=== PATIENT | female | born 1960 | race Caucasian/White ===

== ENCOUNTER → 2017-01-16 | Outpatient (CLI) | payer OTHER ==
[~2017-01-16] MED LIST: AMOXICILLIN500 M2 PO; AMOXICILLIN500 MG PO; ANUSOL-HC25 MG RC; ATIVAN1 MG PO; BACTRIM DS 8001 TA1 PO; BACTROBAN CREAM15 GM T; BENADRYL50 MG PO; BRIN10TA PO; BRIN20TA PO; CIPRO500 MG PO; CIPRODEX 0.3%-7.5 M1; CIPROFLOXACIN1 EACH OT; CIPROFLOXACIN500 MG PO; CLARITIN10 M1 PO; CLARITIN10 MG PO; DAYPRO600 M1 PO; DULERA100 PO; EFFEXOR XR75 M1 PO; EFFEXOR-XR150 MG PO; ELIMITE5% TP; EVISTA60 MG PO; FENOFIBRATE134 MG PO; FENOFIBRATE160 MG PO; FIORICET 325 MG1 TAB PO; FLEXERIL10 MG PO; KEFLEX500 MG PO; KENALOG0.1% TP; LATU40TA PO; LEVAQUIN500 M1 PO; LISINOPRIL10 MG PO; LOFIBRA160 MG PO; LOTRISONE 0.05%1 CRE TP; MEDROL DOSEPAK4 MG PO; MELATONIN1 M1 PO; MELLARIL10 MG PO; MELLARIL100 MG PO; MIDODRINE HCL5 M1 PO; MOTRIN600 MG PO; MOTRIN800 MG PO; NO MED LIST; OMEPRAZOLE DR20 MG PO; OMEPRAZOLE20 M1 PO; OMEPRAZOLE20 M2 PO; OMNICEF300 MG PO; OYSTER CALCIUM/1 TA1 PO; OYSTER SHELL CA1 TA5 PO; Oscal,Oyster S500 MG PO; PREDNISONE10 MG PO; PREDNISONE20 M1 PO; PRILOSEC20 M1 PO; PRILOSEC20 MG PO; PROAIR HFA0.09 MG/AC INH; PROAIR HFA8.5 GM INH; PROLIXIN2.5 MG PO; PROZAC10 MG PO; PROZAC20 MG PO; PT UNSURE OF MEDS; RALOXIFENE HYDR60 MG PO; REGLAN10 MG PO; SIMVASTATIN20 MG PO; TESSALON PERLE100 M1 PO; THIORIDAZINE H100 MG; TRIAMCINOLONE AC0.1% T; TRICOR134 MG; TRICOR134 MG PO; TRICOR145 MG PO; TYLENOL W/CODEI1 TA2 PO; VENTOLIN H0.09 MG/AC INH; VIBRAMYCIN100 MG PO; VICO75300 PO; VICODIN ES 7501 TA1 PO; VISTARIL50 MG PO; VITAMIN D2400 UNIT PO; ZANAFLEX4 MG PO; ZITHROMAX250 MG PO; ZOCOR20 MG PO
[2017-01-16 08:42] LABS: EOS % 0.2 % (1.0-4.0); HEMATOCRIT 38.8 % (37.0-47.0); HEMOGLOBIN 12.5 g/dl (12.0-16.0); LYMPH # 1.7 10*3/uL (1.3-4.4); LYMPH % 37.5 % (27.0-41.0); MEAN CELL VOLUME 93.7 fl (81.0-99.0); MEAN CORPUSCULAR HGB 30.2 pg (27.0-31.0); MEAN CORPUSCULAR HGB CONC 32.2 g/dl (33.0-37.0); MEAN PLATELET VOLUME 9.5 fl (9.6-12.3); MONO # 0.4 10*3/uL (0.1-1.0); NEUT # 2.4 10*3/uL (2.3-7.9); NEUT % 53.1 % (47.0-73.0); PLATELET COUNT AUTOMATED 320 10*3/uL (130-400); RED BLOOD COUNT 4.14 10*6/uL (4.10-5.10); RED CELL DISTRI WIDTH 12.6 % (0-14.5); WHITE BLOOD COUNT 4.4 10*3/uL (4.8-10.8)
[2017-01-16 08:54] LABS: HEMOGLOBIN A1c 5.4 % (4.8-5.6)
[2017-01-16 09:16] LABS: ALBUMIN 3.8 gm/dl (3.1-4.5); ALKALINE PHOSPHATASE 38 U/L (45-117); BILIRUBIN, DIRECT < 0.1 mg/dL (0.0-0.2); BILIRUBIN, TOTAL 0.3 mg/dl (0.2-1.0); BUN 13 mg/dl (7-24); CARBON DIOXIDE 24 mmol/L (21-32); CHLORIDE 109 mmol/L (98-107); CHOLESTEROL 233 mg/dL (<200); EST GLOM FILT AFRICAN AMERICAN > 60 ml/min; GLUCOSE 98 mg/dL (65-99); POTASSIUM 3.7 mmol/L (3.5-5.1); SGOT/AST 22 IU/L (3-35); SGPT/ALT 18 U/L (12-78); SODIUM 142 mmol/L (136-145); T3 UPTAKE 29 % (31-39); TOTAL PROTEIN 7.3 gm/dL (6.4-8.2); TRIGLYCERIDES 181 mg/dl (<150); VLDL CHOLESTEROL 36 mg/dL (6-40)
[2017-01-16 09:21] LABS: HDL CHOLESTEROL 44 mg/dl (40-60); LDL CHOLESTEROL 153 mg/dL (9-159)
== END | disposition home or self-care (01) ==
LOC: LAB 08:16
PROVIDERS: Nurse Practitioner Family
DX: Z79.899 Other long term (current) drug therapy (principal)

== ENCOUNTER → 2017-05-28 | Outpatient (CLI) | payer OTHER | END | disposition home or self-care (01) | LOC: RAD 13:15 | DX: M47.817 Spondylosis without myelopathy or radiculopathy, lumbosacral region (principal) ==

== ENCOUNTER 2017-06-29 02:39 | Inpatient (IN) | payer OTHER ==
[~2017-06-29] VITALS: Ht 153.7 cm; Wt 97.1 kg
[2017-06-29] VITALS (8 sets, daily range): BP systolic 100–131; BP diastolic 56–69
--- NOTE | ~2017-06-29 | CON ---
[place], [place] REPORT OF CONSULTATION NAME: AUBREY HUDSON UNIT #: [id number] ROOM: 526 DOCTOR: LESVIA HURTADO MD BIRTHDATE: [birth year] DOS: 06/30/2017 CHIEF COMPLAINT: "I am feeling better, thank you." HISTORY OF PRESENT ILLNESS: This is a 56-year-old white female who apparently has a lengthy history of schizoaffective disorder and sees Rhonda Douglas, a nurse practitioner, at the [facility]. The patient is admitted now for shortness of breath as well as substernal chest pain. The patient is being worked up for organic issues. From a medical standpoint, she says she is feeling better and the chest pain has subsided. Psychiatrically, she is content being on her Prolixin and her Prozac, stating that both are effective at combating depression and any voices that she has, she has not experienced either symptom for some time. She routinely follows up with Rhonda Douglas. She convincingly denies medication side effects and requests that her medicines remain unchanged at this point in time. MENTAL STATUS: She is alert and oriented to person, place and time. Mood does seem to be euthymic. Affect is appropriate. There are no symptoms of hypomania or anyi. There are no acute auditory or visual hallucinations. No delusions, no paranoia. Short, intermediate, and long-term memory are intact. DIAGNOSIS: Schizoaffective disorder. PLAN: She is well controlled with these meds. I have noticed that you have reordered the Prozac. It seems that Prolixin may not be on our formulary as long as she does not stay here much longer she can go a few days without it. Should she require a lengthy stay in the hospital, which seems doubtful, I would see if we can obtain the Prolixin for her, so she does not go medication free, make certain she has a followup appointment with Rhonda Douglas at the [facility] health post-discharge. LESVIA HURTADO MD CM:CONSTR:REPORT OF CONSULTATION 1212 07/01/17 0549 interface
[2017-06-29 03:17] LABS: EOS % 0.2 % (1.0-4.0); HEMATOCRIT 31.7 % (37.0-47.0); HEMOGLOBIN 10.2 g/dl (12.0-16.0); LYMPH # 1.9 10*3/uL (1.3-4.4); LYMPH % 35.3 % (27.0-41.0); MEAN CELL VOLUME 93.2 fl (81.0-99.0); MEAN CORPUSCULAR HGB CONC 32.2 g/dl (33.0-37.0); MEAN PLATELET VOLUME 9.7 fl (9.6-12.3); MONO # 0.5 10*3/uL (0.1-1.0); MONO % 9.3 % (3.0-9.0); PLATELET COUNT AUTOMATED 223 10*3/uL (130-400); RED CELL DISTRI WIDTH 12.7 % (0-14.5); WHITE BLOOD COUNT 5.4 10*3/uL (4.8-10.8)
[2017-06-29 03:27] LABS: ACT PARTIAL THROMBO TIME 22.3 SECONDS (20.8-31.5)
[2017-06-29 03:35] LABS: ALBUMIN 3.2 gm/dl (3.1-4.5); ALKALINE PHOSPHATASE 36 U/L (45-117); BUN 11 mg/dl (7-24); CHLORIDE 106 mmol/L (98-107); CREATININE 1.15 mg/dL (0.55-1.02); MAGNESIUM 1.8 mg/dL (1.5-2.1); POTASSIUM 3.4 mmol/L (3.5-5.1); SGOT/AST 16 IU/L (3-35); SGPT/ALT 16 U/L (12-78); SODIUM 140 mmol/L (136-145); TOTAL PROTEIN 6.7 gm/dL (6.4-8.2); TROPONIN I < 0.015 ng/ml (<0.045)
--- NOTE | 2017-06-29 04:18 | NUR ---
A 56, admitted to , under the services of BRYANNA Michelle DO with a diagnosis of chest pain. Chief complaint is bilat knee pain had fallen last week climbing stairs. c/o sob lives with heavy smoker. knee pain 07/21.. Patient arrived via stretcher from ER. Monitor applied. Initial assessment completed. Vital signs taken and recorded. BRYANNA MICHELLE DO notified of admission to the unit. Orders received. See assessment for past medical history, medications and allergies. Patient and/or family oriented to unit. [facility]. visitation policy reviewed. Clothing/patient valuable form completed. LAVERNE GURROLA
[2017-06-29] MEDS ORDERED: OYSTER SHELL C1 EAC2 PO (04:47)
--- NOTE | 2017-06-29 05:33 | NUR ---
PT. BROUGHT ALL HOME MEDICATIONS IN WITH HER MED REC REVIEWED AND ALL MEDICATIONS SENT TO PHARMACY.
--- NOTE | 2017-06-29 05:38 | NUR ---
CALLED DR. QUEEN NOTIFIED OF PT. CONDITION AND HOME MEDICATIONS RECONCILLED AND PT. WANT CODE STATUS TO BE FULL WITH NO INTUBATION/VENT.
--- NOTE | 2017-06-29 07:30 | NUR ---
PATIENTS HOME MEDICATIONS COUNTED AND TAKEN TO PHARMACY. PT. TO HAVE MEDICATIONS BACK ON DISCHARGE.
--- NOTE | 2017-06-29 08:01 | NUR ---
SPOKE WITH SHAWN IN [facility] AND SHE SAID SHE WILL MAKE SURE DR. HURTADO SEES HIS CONSULTS TODAY.
--- NOTE | 2017-06-29 09:00 | NUR ---
Extrusion Press Operator in to talk to patient. Patient states lives at home with mom and uncle. There are few steps in the home. Physician: kayla marcelino [facility]acy: [facility] Home health services: none Patient's level of ADLs: INDEPENDENT Patient has working utilities: all working DME: cane Follow-up physician's appointment after d/c: will be made by hospitalist nurse director upon discharge Does patient want to access PORTAL?: no Discharge plan discussed with patient, patient lives at home with her mom and uncle, she states she gets around with a cane, patient stated she would be going back home when able and denies any home needs. KIARA DIAZ
--- NOTE | 2017-06-29 10:40 | NUR ---
DR HURTADO NOTIFIED OF CONSULT
--- NOTE | 2017-06-29 11:40 | NUR ---
CONSULT INFO GIVEN TO JEET AT [facility]
--- NOTE | 2017-06-29 21:10 | NUR ---
PATIENT LYING IN BED. NO VOICED COMPLAINTS AT THIS TIME. PATIENT IS A&OX3, FLAT AFFECT. AMBULATORY. RESPIRATIONS EASY/REGULAR. CALL LIGHT IS IN REACH.
[2017-06-30] VITALS: BP 106/53
--- NOTE | 2017-06-30 00:42 | NUR ---
PATIENT SLEEPING. CALL LIGHT IN REACH.
[2017-06-30 07:08] LABS: HEMOGLOBIN 11.3 g/dl (12.0-16.0); LYMPH # 1.2 10*3/uL (1.3-4.4); LYMPH % 37.3 % (27.0-41.0); MEAN CELL VOLUME 95.1 fl (81.0-99.0); MEAN CORPUSCULAR HGB 30.7 pg (27.0-31.0); MEAN CORPUSCULAR HGB CONC 32.3 g/dl (33.0-37.0); MEAN PLATELET VOLUME 9.6 fl (9.6-12.3); MONO # 0.3 10*3/uL (0.1-1.0); MONO % 7.7 % (3.0-9.0); NEUT # 1.8 10*3/uL (2.3-7.9); NEUT % 54.7 % (47.0-73.0); PLATELET COUNT AUTOMATED 241 10*3/uL (130-400); RED BLOOD COUNT 3.68 10*6/uL (4.10-5.10); RED CELL DISTRI WIDTH 12.6 % (0-14.5); WHITE BLOOD COUNT 3.2 10*3/uL (4.8-10.8)
[2017-06-30 07:41] LABS: ALBUMIN 3.3 gm/dl (3.1-4.5); ALKALINE PHOSPHATASE 38 U/L (45-117); BUN 14 mg/dl (7-24); CHLORIDE 109 mmol/L (98-107); CHOLESTEROL 205 mg/dL (<200); CREATININE 1.06 mg/dL (0.55-1.02); FREE T4 0.97 ng/dl (0.76-1.46); HDL CHOLESTEROL 41 mg/dl (40-60); LDL CHOLESTEROL 139 mg/dL (9-159); MAGNESIUM 2.2 mg/dL (1.5-2.1); PHOSPHOROUS 3.4 mg/dL (2.5-4.9); POTASSIUM 3.9 mmol/L (3.5-5.1); SGOT/AST 16 IU/L (3-35); SGPT/ALT 15 U/L (12-78); SODIUM 141 mmol/L (136-145); TRIGLYCERIDES 125 mg/dl (<150); VLDL CHOLESTEROL 25 mg/dL (6-40)
[2017-06-30 08:00] VITALS: BP 100/58
[2017-06-30 08:14] LABS: VITAMIN D, 25-HYDROXY 31.6 ng/mL (30-100)
[2017-06-30] MEDS ORDERED: ASPIRIN ADULT L81 M1 PO (11:56)
[2017-06-30 12:00] VITALS: BP 111/44
[2017-06-30] MEDS ORDERED: B12,B-12,B 12500 MC1 PO (13:53)
--- NOTE | 2017-06-30 14:57 | NUR ---
DISCHARGED HOME AFTER INSTRUCTIONS GIVEN TO PATIENT.
== END 2017-06-30 14:57 | disposition home or self-care (01) | DRG 280 ==
LOC: ED 02:39 → 5E 03:45 → EDHOLD 03:45 → 5E 03:54
PROVIDERS: Hospitalist; Student in an Organized Health Care Education/Training Program; ADMIT Internal Medicine
DX: I21.3 ST elevation (STEMI) myocardial infarction of unspecified site (principal); E43 Unspecified severe protein-calorie malnutrition; N18.3 Chronic kidney disease, stage 3 (moderate); Z68.41 Body mass index [BMI] 40.0-44.9, adult; F25.9 Schizoaffective disorder, unspecified; E87.6 Hypokalemia; M25.561 Pain in right knee; M54.42 Lumbago with sciatica, left side; F32.9 Major depressive disorder, single episode, unspecified; E66.01 Morbid (severe) obesity due to excess calories; K21.9 Gastro-esophageal reflux disease without esophagitis; J44.9 Chronic obstructive pulmonary disease, unspecified; F41.9 Anxiety disorder, unspecified; E78.2 Mixed hyperlipidemia; D64.9 Anemia, unspecified; R73.9 Hyperglycemia, unspecified; M25.562 Pain in left knee; M54.41 Lumbago with sciatica, right side; G89.29 Other chronic pain; F41.1 Generalized anxiety disorder; R94.31 Abnormal electrocardiogram [ECG] [EKG]; Z82.49 Family history of ischemic heart disease and other diseases of the circulatory system; Z90.710 Acquired absence of both cervix and uterus; Z87.891 Personal history of nicotine dependence; Z83.3 Family history of diabetes mellitus; Z84.89 Family history of other specified conditions; Z88.2 Allergy status to sulfonamides; Z88.8 Allergy status to other drugs, medicaments and biological substances; Z79.899 Other long term (current) drug therapy

== ENCOUNTER → 2017-07-03 | Outpatient (CLI) | payer OTHER ==
[~2017-07-03] MED LIST changes: +ASPIRIN ADULT L81 M1 PO; +B12,B-12,B 12500 MC1 PO; +OYSTER SHELL C1 EAC2 PO
--- NOTE | ~2017-07-03 | ST ---
[place], [place] EXERCISE STRESS TEST REPORT [id number] UNIT #: [id number] ROOM: DOCTOR: NIKI BALDERRAMA MD BIRTHDATE: [birth year] DOS: 07/03/2017 INDICATION: Chest pain. PROCEDURE: The patient was brought into the stress lab. The procedure was explained with risks, benefits, and alternatives. Lexiscan was injected. The patient tolerated the procedure well. Following the injection, there was evidence of throughout the EKG without any progression in the recovery period. BLOOD PRESSURE RESPONSE: Resting blood pressure was 110/78 with ending blood pressure 102/70. SUMMARY: 1. Adequate Lexiscan stress test. 2. Negative Lexiscan stress test for stress induced myocardial ischemia. 3. No arrhythmias were noted. 4. Myoview results will be reported separately. NIKI BALDERRAMA MD CM:STRESS:EXERCISE STRESS TEST REPORT 1000 1017 NIKI BALDERRAMA MD
--- NOTE | 2017-07-03 09:52 | NUR ---
INFORMED SIGNED CONSENT OBTAINED FOR LEXISCAN STRESS TEST WITH DR BALDERRAMA. RESTING HR 82 NSR BP 110/78. PULSE OX 97% LUNGS CLEAR. PT COMPLETED ONE MINUTE OF A LEXISCAN 0.4MG IV OVER 10 SECONDS. NO ARRHTYHMIAS OR ST CHANGES NOTED. PT C/O SOB AND HEADACHE WITH INFUSION. LAST RECOVERY HR OF 102 BP 102/70. PT IN STABLE CONDITION, AWAITING NUCLEAR IMAGES.
== END | disposition home or self-care (01) ==
LOC: CARD 01:54
DX: R07.89 Other chest pain (principal)

== ENCOUNTER → 2017-09-14 | Day surgery (SDC) | payer OTHER ==
[~2017-09-14] VITALS: Ht 165.1 cm; Wt 99.8 kg
[~2017-09-14] MED LIST changes: +CONSTULOSE10 GM/151 PO
[2017-09-14 07:00] VITALS: BP 116/70
[2017-09-14 08:30] VITALS: BP 79/54
[2017-09-14 08:41] VITALS: BP 97/63
[2017-09-14 09:00] VITALS: BP 131/69
== END | disposition home or self-care (01) ==
LOC: SDC 09-11 14:45
DX: D12.3 Benign neoplasm of transverse colon (principal); K62.1 Rectal polyp; I10 Essential (primary) hypertension; F41.9 Anxiety disorder, unspecified; F32.9 Major depressive disorder, single episode, unspecified; K21.9 Gastro-esophageal reflux disease without esophagitis; E78.00 Pure hypercholesterolemia, unspecified; Z86.14 Personal history of Methicillin resistant Staphylococcus aureus infection; Z98.890 Other specified postprocedural states; Z82.49 Family history of ischemic heart disease and other diseases of the circulatory system; Z88.1 Allergy status to other antibiotic agents; Z88.8 Allergy status to other drugs, medicaments and biological substances; J44.9 Chronic obstructive pulmonary disease, unspecified; Z79.899 Other long term (current) drug therapy

== ENCOUNTER → 2017-09-22 | Outpatient (CLI) | payer OTHER | END | disposition home or self-care (01) | LOC: SDC 09-11 14:45 → MAMMO 16:17 | DX: Z12.31 Encounter for screening mammogram for malignant neoplasm of breast (principal) ==

== ENCOUNTER → 2017-12-08 | Outpatient (CLI) | payer OTHER | END | disposition home or self-care (01) | LOC: RAD 11:40 | DX: M48.56XD Collapsed vertebra, not elsewhere classified, lumbar region, subsequent encounter for fracture with routine healing (principal); M17.0 Bilateral primary osteoarthritis of knee ==

== ENCOUNTER 2018-02-03 04:55 | Emergency (ER) | payer OTHER ==
[~2018-02-03] VITALS: Ht 170.1 cm; Wt 95.3 kg
[2018-02-03 04:59] VITALS: BP 118/66
[2018-02-03] MEDS ORDERED: AVPAK AZITHROM250 M1 PO (05:05)
[2018-02-03] MEDS ORDERED: BENADRYL ALLERG25 M5 PO (05:05)
[2018-02-03] MEDS ORDERED: PREDNISONE50 MG PO (05:05)
== END 2018-02-03 05:18 | disposition home or self-care (01) ==
LOC: ED 04:55
DX: L29.9 Pruritus, unspecified (principal); H66.92 Otitis media, unspecified, left ear; E66.01 Morbid (severe) obesity due to excess calories; K21.9 Gastro-esophageal reflux disease without esophagitis; N18.9 Chronic kidney disease, unspecified; Z88.2 Allergy status to sulfonamides; Z87.891 Personal history of nicotine dependence; Z79.899 Other long term (current) drug therapy; Z98.890 Other specified postprocedural states; Z90.710 Acquired absence of both cervix and uterus; Z88.6 Allergy status to analgesic agent

== ENCOUNTER 2018-02-12 04:03 | Emergency (ER) | payer OTHER ==
[~2018-02-12] VITALS: Ht 165.1 cm; Wt 77.1 kg
[~2018-02-12 04:03] MED LIST changes: +AVPAK AZITHROM250 M1 PO; +BENADRYL ALLERG25 M5 PO; +PREDNISONE50 MG PO
[2018-02-12 04:33] LABS: BILIRUBIN NEGATIVE (NEGATIVE); BLOOD NEGATIVE (NEGATIVE); CLARITY CLEAR (CLEAR); COLOR YELLOW (YELLOW); GLUCOSE NEGATIVE (NEGATIVE); KETONE NEGATIVE (NEGATIVE); LEUKO ESTERASE 1+ (NEGATIVE); NITRITE NEGATIVE (NEGATIVE); PH 5.5 (5.0-9.0); SPECIFIC GRAVITY <= 1.005 (1.005-1.030); UROBILINOGEN 0.2 E.U./dl (0.2-1.0)
[2018-02-12 04:39] LABS: WBC 16-20 wbc/hpf (0-5)
[2018-02-12 04:55] LABS: BASO % 0.1 % (0.0-1.0); HEMATOCRIT 37.8 % (37.0-47.0); HEMOGLOBIN 12.1 g/dl (12.0-16.0); LYMPH # 3.1 10*3/uL (1.3-4.4); LYMPH % 31.3 % (27.0-41.0); MEAN CELL VOLUME 91.7 fl (81.0-99.0); MEAN CORPUSCULAR HGB 29.4 pg (27.0-31.0); MEAN PLATELET VOLUME 9.7 fl (9.6-12.3); MONO # 0.7 10*3/uL (0.1-1.0); MONO % 7.3 % (3.0-9.0); NEUT % 60.7 % (47.0-73.0); PLATELET COUNT AUTOMATED 348 10*3/uL (130-400); RED BLOOD COUNT 4.12 10*6/uL (4.10-5.10); RED CELL DISTRI WIDTH 13.3 % (0-14.5); WHITE BLOOD COUNT 9.9 10*3/uL (4.8-10.8)
[2018-02-12 05:05] LABS: ACT PARTIAL THROMBO TIME 19.8 SECONDS (20.8-31.5); INTERNATIONAL NORM RATIO 0.9 (2.0-3.5)
[2018-02-12 05:07] LABS: LIPASE 364 U/L (73-393)
[2018-02-12 05:14] LABS: ALBUMIN 3.8 gm/dl (3.1-4.5); ALKALINE PHOSPHATASE 62 U/L (45-117); BUN 12 mg/dl (7-24); CHLORIDE 103 mmol/L (98-107); CPK 86 U/L (26-192); CREATININE 1.34 mg/dL (0.55-1.02); POTASSIUM 3.5 mmol/L (3.5-5.1); SGOT/AST 20 IU/L (3-35); SGPT/ALT 24 U/L (12-78); SODIUM 140 mmol/L (136-145); TOTAL PROTEIN 7.3 gm/dL (6.4-8.2)
[2018-02-12 05:16] LABS: CKMB 1.1 ng/ml (0.5-3.6)
[2018-02-12 05:17] LABS: TROPONIN I < 0.015 ng/ml (<0.045)
[2018-02-12] MEDS ORDERED: CEFDINIR300 MG PO (05:36)
[2018-02-12 06:11] VITALS: BP 120/69
== END 2018-02-12 06:22 | disposition home or self-care (01) ==
LOC: ED 04:03
PROVIDERS: Emergency Medicine
DX: N39.0 Urinary tract infection, site not specified (principal); N18.9 Chronic kidney disease, unspecified; J44.9 Chronic obstructive pulmonary disease, unspecified; K21.9 Gastro-esophageal reflux disease without esophagitis; E78.5 Hyperlipidemia, unspecified; E66.01 Morbid (severe) obesity due to excess calories; Z79.899 Other long term (current) drug therapy; Z88.2 Allergy status to sulfonamides; Z88.8 Allergy status to other drugs, medicaments and biological substances; Z87.891 Personal history of nicotine dependence; Z90.710 Acquired absence of both cervix and uterus; Z98.890 Other specified postprocedural states; Z79.82 Long term (current) use of aspirin

== ENCOUNTER 2018-04-05 21:21 | Emergency (ER) | payer OTHER ==
[~2018-04-05] VITALS: Ht 165.1 cm; Wt 95.3 kg
[~2018-04-05 21:21] MED LIST changes: +CEFDINIR300 MG PO
[2018-04-05 21:24] VITALS: BP 144/76
[2018-04-05] MEDS ORDERED: BENADRYL ALLERG25 M5 PO (21:54)
[2018-04-05] MEDS ORDERED: PREDNISONE50 MG PO (21:54)
[2018-04-05 22:22] LABS: BILIRUBIN NEGATIVE (NEGATIVE); BLOOD NEGATIVE (NEGATIVE); CLARITY CLEAR (CLEAR); COLOR YELLOW (YELLOW); GLUCOSE NEGATIVE (NEGATIVE); KETONE NEGATIVE (NEGATIVE); LEUKO ESTERASE NEGATIVE (NEGATIVE); NITRITE NEGATIVE (NEGATIVE); PH 6.5 (5.0-9.0); UROBILINOGEN 0.2 E.U./dl (0.2-1.0)
[2018-04-05 22:37] LABS: WBC 0-2 wbc/hpf (0-5)
== END 2018-04-05 22:49 | disposition home or self-care (01) ==
LOC: ED 21:21
PROVIDERS: Student in an Organized Health Care Education/Training Program
DX: M25.561 Pain in right knee (principal); M25.562 Pain in left knee; M25.522 Pain in left elbow; R21 Rash and other nonspecific skin eruption; J44.9 Chronic obstructive pulmonary disease, unspecified; K21.9 Gastro-esophageal reflux disease without esophagitis; E78.5 Hyperlipidemia, unspecified; E66.01 Morbid (severe) obesity due to excess calories; N18.9 Chronic kidney disease, unspecified; Z87.891 Personal history of nicotine dependence; Z90.710 Acquired absence of both cervix and uterus; Z98.890 Other specified postprocedural states; Z79.899 Other long term (current) drug therapy; Z88.2 Allergy status to sulfonamides; Z88.6 Allergy status to analgesic agent; Z79.82 Long term (current) use of aspirin

== ENCOUNTER 2018-10-09 14:59 | Inpatient (IN) | payer OTHER ==
[~2018-10-09] VITALS: Ht 165.1 cm; Wt 93.2 kg
--- NOTE | ~2018-10-09 | EKG ---
[place], [place] ELECTROCARDIOGRAM REPORT NAME: AUBREY HUDSON UNIT #: [id number] ROOM: 402 DOCTOR: MOHAMUD DRAFT REPORT BIRTHDATE: [birth year] [facility] Test Date: 2018-10-09 Test Time: 15:01:20 Pat Name: AUBREY HUDSON Department: Room: 402 Gender: F Sound Printer: Radha Loredo : 1960 Requested By: ALFONSO ANGELA Order Number: [id number] Reading MD: Maricarmen Gutiérrez MD Measurements Intervals [place] Rate: 106 P: 45 [place]: 182 QRS: 56 QRSD: 85 T: QT: 306 QTc: 407 Interpretive Statements Sinus tachycardia Nonspecific T abnrm, anterolateral leads Compared to ECG 05/25/2018 02:58:15 Sinus rhythm no longer present Electronically Signed On 10-12-2018 12:00:27 PST by Maricarmen Gutiérrez MD CM:EKGRPT:ELECTROCARDIOGRAM REPORT 1501 1200 ALFONSO MALLORY DRAFT REPORT ALFONSO ANGELA M.D.
--- NOTE | ~2018-10-09 | EKG ---
[place], [place] ELECTROCARDIOGRAM REPORT NAME: AUBREY HUDSON UNIT #: [id number] ROOM: 402 DOCTOR: MOHAMUD DRAFT REPORT BIRTHDATE: [birth year] [facility] Test Date: 2018-10-09 Test Time: 17:28:55 Pat Name: AUBREY HUDSON Department: Room: 402 Gender: F Operational Intelligence Officer: 20 : 1960 Requested By: ALFONSO ANGELA Order Number: [id number] Reading MD: Maricarmen Gutiérrez MD Measurements Intervals [place] Rate: 94 P: 31 AL: 185 QRS: 27 QRSD: 74 T: 6 QT: 402 QTc: 503 Interpretive Statements Sinus rhythm Borderline T abnormalities, anterior leads Borderline prolonged QT interval Baseline wander in lead(s) I,III,aVL,V6 Compared to ECG 05/25/2018 02:58:15 Electronically Signed On 10-12-2018 12:00:31 PST by Maricarmen Gutiérrez MD CM:EKGRPT:ELECTROCARDIOGRAM REPORT 1728 1200 ALFONSO MALLORY DRAFT REPORT ALFONSO ANGELA M.D.
--- NOTE | ~2018-10-09 | EKG ---
[place], [place] ELECTROCARDIOGRAM REPORT NAME: AUBREY HUDSON UNIT #: [id number] ROOM: 402 DOCTOR: MOHAMUD DRAFT REPORT BIRTHDATE: [birth year] [facility] Test Date: 2018-10-09 Test Time: 21:04:24 Pat Name: AUBREY HUDSON Department: Room: 402 Gender: F Estate Conservator: : 1960 Requested By: ALFONSO ANGELA Order Number: [id number] Reading MD: Maricarmen Gutiérrez MD Measurements Intervals [place] Rate: 80 P: 28 MD: 175 QRS: 36 QRSD: 87 T: 14 QT: 381 QTc: 440 Interpretive Statements Sinus rhythm Borderline T abnormalities, anterior leads Compared to ECG 05/25/2018 02:58:15 Electronically Signed On 10-12-2018 12:00:42 PST by Maricarmen Gutiérrez MD CM:EKGRPT:ELECTROCARDIOGRAM REPORT 03 1200 ALFONSO MALLORY DRAFT REPORT ALFONSO ANGELA M.D.
[~2018-10-09 14:59] MED LIST changes: +CEPHALEXIN500 M1 PO; +KENALOG 0.1%80 GM T; +VISTARIL25 MG PO
[2018-10-09 15:01] VITALS: BP 116/72
[2018-10-09 15:15] LABS: HEMATOCRIT 37.7 % (37.0-47.0); HEMOGLOBIN 12.4 g/dl (12.0-16.0); LYMPH # 1.4 10*3/uL (1.3-4.4); LYMPH % 22.3 % (27.0-41.0); MEAN CELL VOLUME 90.8 fl (81.0-99.0); MEAN CORPUSCULAR HGB 29.9 pg (27.0-31.0); MEAN CORPUSCULAR HGB CONC 32.9 g/dl (33.0-37.0); MEAN PLATELET VOLUME 9.6 fl (9.6-12.3); MONO # 0.5 10*3/uL (0.1-1.0); MONO % 8.3 % (3.0-9.0); NEUT # 4.2 10*3/uL (2.3-7.9); NEUT % 68.9 % (47.0-73.0); PLATELET COUNT AUTOMATED 303 10*3/uL (130-400); RED BLOOD COUNT 4.15 10*6/uL (4.10-5.10); RED CELL DISTRI WIDTH 12.5 % (0-14.5); WHITE BLOOD COUNT 6.1 10*3/uL (4.8-10.8)
[2018-10-09 15:35] LABS: ACT PARTIAL THROMBO TIME 20.7 SECONDS (20.8-31.5); INTERNATIONAL NORM RATIO 0.9 (2.0-3.5)
[2018-10-09 15:37] LABS: ALBUMIN 3.7 gm/dl (3.1-4.5); ALKALINE PHOSPHATASE 67 U/L (45-117); BUN 9 mg/dl (7-24); CHLORIDE 111 mmol/L (98-107); CREATININE 1.16 mg/dL (0.55-1.02); POTASSIUM 3.6 mmol/L (3.5-5.1); SGOT/AST 21 IU/L (3-35); SGPT/ALT 23 U/L (12-78); SODIUM 143 mmol/L (136-145); TOTAL PROTEIN 7.9 gm/dL (6.4-8.2)
[2018-10-09 15:39] LABS: TROPONIN I < 0.015 ng/ml (<0.045)
[2018-10-09 15:46] VITALS: BP 112/65
--- NOTE | 2018-10-09 15:49 | NUR ---
PT WITH MILD NAUSEA "FELT LIKE I WANTED TO THROW THE ASPIRIN UP", PT WITH COUGHING SPELL, SAO2 @ 96% RA WITH SAFETY PRECAUTIONS INTACT,FAMILY @ BEDSODE AND CALL LIGHT WITHIN REACH. NO ADDITIONAL COMPLAINTS VOICED.
[2018-10-09 16:42] VITALS: BP 114/68
[2018-10-09] MEDS ORDERED: ZOLOFT50 MG PO (16:54)
--- NOTE | 2018-10-09 16:55 | NUR ---
PT UNABLE TO PROVIDED URINE SAMPLE @ THIS TIME,FAMILY @ BEDSIDE.
[2018-10-09 17:23] VITALS: BP 103/71
--- NOTE | 2018-10-09 17:32 | NUR ---
Time: 1734 A 58 year old FEMALE admitted to under services of JUAN FREEMAN DO. Pt. arrived via stretcher from [place]. Chief complaint: CHEST PAIN. LAURO LAN
[2018-10-09 17:42] VITALS: BP 95/41
[2018-10-09] MEDS ORDERED: VENTOLIN 02.5 MG/3 M INH (18:00)
[2018-10-09] MEDS ORDERED: DULE1ARO1 INH (18:01)
[2018-10-09] MEDS ORDERED: VITAMIN D-32000 UNI1 PO (18:04)
[2018-10-09 18:10] LABS: BILIRUBIN NEGATIVE (NEGATIVE); BLOOD NEGATIVE (NEGATIVE); CLARITY SL CLOUDY (CLEAR); COLOR YELLOW (YELLOW); GLUCOSE NEGATIVE (NEGATIVE); KETONE NEGATIVE (NEGATIVE); LEUKO ESTERASE 1+ (NEGATIVE); NITRITE NEGATIVE (NEGATIVE); UROBILINOGEN 0.2 E.U./dl (0.2-1.0)
[2018-10-09 18:18] LABS: BACTERIA 2+; RBC 0-2 rbc/hpf (0-2); WBC 21-30 wbc/hpf (0-5)
--- NOTE | 2018-10-09 19:38 | NUR ---
Shift chart check completed.
[2018-10-09 20:07] VITALS: BP 102/64
--- NOTE | 2018-10-09 20:10 | NUR ---
PATIENT MEDICATED WITH PO NORCO FOR PAIN IN HER LEFT SIDED CHEST RATED 6/10
--- NOTE | 2018-10-09 21:00 | NUR ---
PATIENT STATES MEDICATION EFFECTIVE
[2018-10-10] VITALS: BP 110/61
--- NOTE | 2018-10-10 | NUR ---
INTO SEE PT. PT ASSESSED. PT HAS NO COMPLAINTS
--- NOTE | 2018-10-10 04:00 | NUR ---
INTO SEE PT. PT RESTING. WILL CONTINUE TO MONITOR
[2018-10-10 06:21] LABS: HEMATOCRIT 35.1 % (37.0-47.0); HEMOGLOBIN 11.1 g/dl (12.0-16.0); LYMPH # 1.3 10*3/uL (1.3-4.4); LYMPH % 28.4 % (27.0-41.0); MEAN CELL VOLUME 92.9 fl (81.0-99.0); MEAN CORPUSCULAR HGB 29.4 pg (27.0-31.0); MEAN CORPUSCULAR HGB CONC 31.6 g/dl (33.0-37.0); MEAN PLATELET VOLUME 9.8 fl (9.6-12.3); MONO # 0.4 10*3/uL (0.1-1.0); MONO % 8.2 % (3.0-9.0); NEUT # 2.9 10*3/uL (2.3-7.9); NEUT % 63.2 % (47.0-73.0); PLATELET COUNT AUTOMATED 256 10*3/uL (130-400); RED BLOOD COUNT 3.78 10*6/uL (4.10-5.10); RED CELL DISTRI WIDTH 12.7 % (0-14.5); WHITE BLOOD COUNT 4.7 10*3/uL (4.8-10.8)
[2018-10-10 06:47] LABS: ALBUMIN 3.1 gm/dl (3.1-4.5); ALKALINE PHOSPHATASE 57 U/L (45-117); BUN 10 mg/dl (7-24); CHLORIDE 111 mmol/L (98-107); CREATININE 1.01 mg/dL (0.55-1.02); PHOSPHOROUS 4.1 mg/dL (2.5-4.9); POTASSIUM 3.5 mmol/L (3.5-5.1); SGOT/AST 19 IU/L (3-35); SGPT/ALT 21 U/L (12-78); SODIUM 144 mmol/L (136-145); TOTAL PROTEIN 6.6 gm/dL (6.4-8.2)
[2018-10-10 08:00] VITALS: BP 100/60
[2018-10-10 11:28] VITALS: BP 73/43
[2018-10-10 12:00] VITALS: BP 85/48
[2018-10-10 16:00] VITALS: BP 101/49
--- NOTE | 2018-10-10 19:49 | NUR ---
PATIENT RESTING IN BED WITH NO S/S OF DISTRESS. NO NEEDS MADE. BED IN LOWEST POSITION, CALL LIGHT IN REACH
[2018-10-10 20:00] VITALS: BP 110/59
--- NOTE | 2018-10-10 22:15 | NUR ---
AUBREY HUDSON [id number] Please refer to the physician's history and physical for past medical history, comorbid conditions, and allergies. Diagnosis: CHEST PAIN R/O ACUTE DE Roberto Score: 21,LOW OR NO RISK WOUND DESCRIPTIONS: PATIENT HAS INTACT SCABS TO ANTERIOR BLE. NO ERYTHEMA OR DRAINAGE NOTED TO THESE AREAS. PATIENT STATES SHE GOT THESE AREAS BY "SCRATCHING AND SCRATCHING." PATIENT DENIES PAIN TO THESE AREAS. Surface the patient is resting on: Position Pro SKIN PREVENTION RECOMMENDATION: 1. Pressure redistribution support surface as appropriate 2. Elevate heels 3. Remove boots/TEDS every shift and reapply 4. Head of bed 30 degrees as tolerated 5. Assess nutrition and hydration 6. Manage moisture 7. Avoid the use of containment devices while in bed 8. Use absorptive products on surfaces limit layers of linens on bed 9. Turn and reposition every 1-2 hours in bed and every 1 hour in chair as tolerated 10. Weight shifts every 15 minutes while up in chair 11. Offloading with pillows or device to keep heels elevated off bed 12. Monitor skin at least every shift 13. Inspect under medical devices twice a day
--- NOTE | 2018-10-10 22:25 | NUR ---
24 HR chart check completed.
[2018-10-11] VITALS: BP 114/68
--- NOTE | 2018-10-11 03:47 | NUR ---
patient resting in bed with no s/s of distress. bed in lowest position, call light in reach
[2018-10-11 06:20] LABS: HEMATOCRIT 32.7 % (37.0-47.0); HEMOGLOBIN 10.6 g/dl (12.0-16.0); LYMPH # 1.1 10*3/uL (1.3-4.4); LYMPH % 25.6 % (27.0-41.0); MEAN CELL VOLUME 93.2 fl (81.0-99.0); MEAN CORPUSCULAR HGB 30.2 pg (27.0-31.0); MEAN CORPUSCULAR HGB CONC 32.4 g/dl (33.0-37.0); MEAN PLATELET VOLUME 9.8 fl (9.6-12.3); MONO # 0.4 10*3/uL (0.1-1.0); MONO % 8.8 % (3.0-9.0); NEUT # 2.9 10*3/uL (2.3-7.9); NEUT % 65.4 % (47.0-73.0); PLATELET COUNT AUTOMATED 249 10*3/uL (130-400); RED BLOOD COUNT 3.51 10*6/uL (4.10-5.10); RED CELL DISTRI WIDTH 12.5 % (0-14.5); WHITE BLOOD COUNT 4.5 10*3/uL (4.8-10.8)
[2018-10-11 06:40] LABS: ALBUMIN 2.8 gm/dl (3.1-4.5); ALKALINE PHOSPHATASE 53 U/L (45-117); BUN 11 mg/dl (7-24); CHLORIDE 108 mmol/L (98-107); CREATININE 1.01 mg/dL (0.55-1.02); SGOT/AST 28 IU/L (3-35); SGPT/ALT 21 U/L (12-78); SODIUM 139 mmol/L (136-145); TOTAL PROTEIN 6.7 gm/dL (6.4-8.2)
[2018-10-11 06:41] LABS: POTASSIUM 3.9 mmol/L (3.5-5.1)
--- NOTE | 2018-10-11 07:45 | NUR ---
PATIENT COMPLAINS OF HEAD AND SHOULDER PAIN RATED AT A 10. PRN NORCO WAS ADMINISTERED. WILL MONITOR FOR EFFECTIVENESS.
--- NOTE | 2018-10-11 09:00 | NUR ---
Tube Filler in to talk to patient. Patient states lives at home with family. There are few steps in the home. Physician: tammy ziegler [facility]acy: [facility] Home health services: none Patient's level of ADLs: INDEPENDENT Patient has working utilities: all working DME: cane Follow-up physician's appointment after d/c: will be made by hospitalist nurse director upon discharge Does patient want to access PORTAL?: no Discharge plan discussed with patient, patient lives at home, is independent in adls and ambulation, patient states she will be going back home when able and denies any home needs. KIARA DIAZ
[2018-10-11] MEDS ORDERED: CIPRO500 MG PO (09:34)
--- NOTE | 2018-10-11 11:44 | NUR ---
PATIENT IS DISCHARGED. IV HAS BEEN DISCONTINUED AND HEART MONITOR ACCOUNTED FOR. PATIENT LEFT FLOOR ACCOMPANIED BY MOTHER. PATIENT REFUSED WHEELCHAIR.
[2019-01-03] MEDS ORDERED: CYCLOBENZAPRINE10 MG PO (02:55)
== END 2018-10-11 11:44 | disposition home or self-care (01) | DRG 205 ==
LOC: ED 14:59 → EDHOLD 16:52 → 4E 17:07
PROVIDERS: Emergency Medicine; Internal Medicine; Nurse Practitioner Family; ADMIT Internal Medicine
DX: M94.0 Chondrocostal junction syndrome [Tietze] (principal); N17.0 Acute kidney failure with tubular necrosis; N39.0 Urinary tract infection, site not specified; D72.810 Lymphocytopenia; J44.9 Chronic obstructive pulmonary disease, unspecified; E87.8 Other disorders of electrolyte and fluid balance, not elsewhere classified; F25.9 Schizoaffective disorder, unspecified; N18.3 Chronic kidney disease, stage 3 (moderate); D64.9 Anemia, unspecified; E66.01 Morbid (severe) obesity due to excess calories; E78.5 Hyperlipidemia, unspecified; R21 Rash and other nonspecific skin eruption; I12.9 Hypertensive chronic kidney disease with stage 1 through stage 4 chronic kidney disease, or unspecified chronic kidney disease; F32.9 Major depressive disorder, single episode, unspecified; R10.9 Unspecified abdominal pain; K21.9 Gastro-esophageal reflux disease without esophagitis; F41.1 Generalized anxiety disorder; G89.29 Other chronic pain; M54.9 Dorsalgia, unspecified; T14.8XXA Other injury of unspecified body region, initial encounter; X58.XXXA Exposure to other specified factors, initial encounter; Y93.89 Activity, other specified; Y92.89 Other specified places as the place of occurrence of the external cause; Y99.8 Other external cause status; Z88.2 Allergy status to sulfonamides; Z88.8 Allergy status to other drugs, medicaments and biological substances; Z90.710 Acquired absence of both cervix and uterus; Z90.79 Acquired absence of other genital organ(s); Z90.722 Acquired absence of ovaries, bilateral; Z87.891 Personal history of nicotine dependence; Z83.3 Family history of diabetes mellitus; Z82.49 Family history of ischemic heart disease and other diseases of the circulatory system; Z84.89 Family history of other specified conditions; Z79.82 Long term (current) use of aspirin; Z79.899 Other long term (current) drug therapy; Z68.34 Body mass index [BMI] 34.0-34.9, adult

== ENCOUNTER 2019-04-18 13:18 | Emergency (ER) | payer OTHER ==
[~2019-04-18] VITALS: Ht 165.1 cm; Wt 91.6 kg
--- NOTE | ~2019-04-18 | EKG ---
[place], [place] ELECTROCARDIOGRAM REPORT NAME: AUBREY HUDSON UNIT #: [id number] ROOM: DOCTOR: EPIPHANY DRAFT REPORT BIRTHDATE: [birth year] [facility] Test Date: 2019-04-18 Test Time: 13:57:33 Pat Name: AUBREY HUDSON Department: Room: [facility] Gender: F Test Examiner: : 1960 Requested By: WILLIE PIERCE Order Number: [id number] Reading MD: Lynnette Burt MD Measurements Intervals [place] Rate: 85 P: 26 MD: 176 QRS: 36 QRSD: 75 T: 29 QT: 374 QTc: 445 Interpretive Statements Sinus rhythm Borderline T abnormalities, anterior leads Compared to ECG 01/21/2019 00:46:32 No significant changes Electronically Signed On 04-20-2019 5:50:15 PDT by Lynnette Burt MD CM:EKGRPT:ELECTROCARDIOGRAM REPORT 1357 0550 WILLIE CARRASCO DRAFT REPORT WILLIE PIERCE DO
[~2019-04-18 13:18] MED LIST changes: +CYCLOBENZAPRINE10 MG PO; +DULE1ARO1 INH; +VENTOLIN 02.5 MG/3 M INH; +VITAMIN D-32000 UNI1 PO; +ZOLOFT50 MG PO
[2019-04-18 13:20] VITALS: BP 112/63
[2019-04-18 13:43] LABS: BILIRUBIN NEGATIVE (NEGATIVE); BLOOD NEGATIVE (NEGATIVE); CLARITY CLEAR (CLEAR); COLOR YELLOW (YELLOW); GLUCOSE NEGATIVE (NEGATIVE); KETONE NEGATIVE (NEGATIVE); LEUKO ESTERASE 2+ (NEGATIVE); NITRITE NEGATIVE (NEGATIVE); PH 5.5 (5.0-9.0); SPECIFIC GRAVITY 1.015 (1.005-1.030); UROBILINOGEN 0.2 E.U./dl (0.2-1.0)
[2019-04-18 13:52] LABS: BACTERIA 2+; WBC 21-30 wbc/hpf (0-5)
[2019-04-18 14:04] LABS: HEMATOCRIT 36.5 % (37.0-47.0); HEMOGLOBIN 11.6 g/dl (12.0-16.0); LYMPH # 1.8 10*3/uL (1.3-4.4); LYMPH % 29.3 % (27.0-41.0); MEAN CELL VOLUME 93.4 fl (81.0-99.0); MEAN CORPUSCULAR HGB 29.7 pg (27.0-31.0); MEAN CORPUSCULAR HGB CONC 31.8 g/dl (33.0-37.0); MONO # 0.4 10*3/uL (0.1-1.0); MONO % 6.9 % (3.0-9.0); NEUT # 3.9 10*3/uL (2.3-7.9); NEUT % 63.6 % (47.0-73.0); PLATELET COUNT AUTOMATED 282 10*3/uL (130-400); RED BLOOD COUNT 3.91 10*6/uL (4.10-5.10); RED CELL DISTRI WIDTH 12.6 % (0-14.5); WHITE BLOOD COUNT 6.1 10*3/uL (4.8-10.8)
[2019-04-18 14:17] LABS: ACT PARTIAL THROMBO TIME 21.1 SECONDS (20.0-32.1); INTERNATIONAL NORM RATIO 0.9 (2.0-3.5)
[2019-04-18 14:19] LABS: ALBUMIN 3.4 gm/dl (3.1-4.5); ALKALINE PHOSPHATASE 48 U/L (45-117); BUN 11 mg/dl (7-24); CHLORIDE 109 mmol/L (98-107); CREATININE 1.17 mg/dL (0.55-1.02); LIPASE 168 U/L (73-393); POTASSIUM 3.7 mmol/L (3.5-5.1); SGOT/AST 20 IU/L (3-35); SGPT/ALT 21 U/L (12-78); SODIUM 141 mmol/L (136-145); TOTAL PROTEIN 7.2 gm/dL (6.4-8.2)
[2019-04-18 14:20] LABS: TROPONIN I < 0.015 ng/ml (<0.045)
--- NOTE | 2019-04-18 15:45 | NUR ---
Patient resting in room. No needs voiced at this time. Will continue to closely monitor.
[2019-04-18] MEDS ORDERED: CEFUROXIME AXE500 MG PO (16:17)
== END 2019-04-18 16:21 | disposition home or self-care (01) ==
LOC: ED 13:18 → EDHOLD 13:54 → ED 16:21
PROVIDERS: Family Medicine
DX: N39.0 Urinary tract infection, site not specified (principal); K80.20 Calculus of gallbladder without cholecystitis without obstruction; J44.9 Chronic obstructive pulmonary disease, unspecified; K21.9 Gastro-esophageal reflux disease without esophagitis; E78.5 Hyperlipidemia, unspecified; E66.01 Morbid (severe) obesity due to excess calories; N18.3 Chronic kidney disease, stage 3 (moderate); Z88.2 Allergy status to sulfonamides; Z88.8 Allergy status to other drugs, medicaments and biological substances; Z79.899 Other long term (current) drug therapy; Z79.82 Long term (current) use of aspirin; Z90.710 Acquired absence of both cervix and uterus; Z87.891 Personal history of nicotine dependence

== ENCOUNTER → 2019-06-07 | Outpatient (CLI) | payer OTHER ==
[~2019-06-07] MED LIST changes: +CEFUROXIME AXE500 MG PO
[2019-06-07 10:35] LABS: ALBUMIN 3.5 gm/dl (3.1-4.5); ALKALINE PHOSPHATASE 44 U/L (45-117); BILIRUBIN, DIRECT < 0.1 mg/dL (0.0-0.2); SGOT/AST 18 IU/L (3-35); SGPT/ALT 19 U/L (12-78); TOTAL PROTEIN 7.2 gm/dL (6.4-8.2)
== END | disposition home or self-care (01) ==
LOC: LAB 09:18 → US 10:00
PROVIDERS: Internal Medicine Gastroenterology
DX: K76.0 Fatty (change of) liver, not elsewhere classified (principal)

== ENCOUNTER 2019-08-21 23:10 | Emergency (ER) | payer OTHER ==
[~2019-08-21] VITALS: Ht 165.1 cm; Wt 90.7 kg
--- NOTE | ~2019-08-21 | EKG ---
[place], [place] ELECTROCARDIOGRAM REPORT NAME: AUBREY HUDSON UNIT #: [id number] ROOM: DOCTOR: EPIPHANY DRAFT REPORT BIRTHDATE: [birth year] [facility] Test Date: 2019-08-22 Test Time: 00:15:57 Pat Name: AUBREY HUDSON Department: Room: Gender: F Drum Tender: Adrien Bautista : 1960 Requested By: QUE BOCANEGRA Order Number: [id number] Reading MD: Eduard La MD Measurements Intervals [place] Rate: 68 P: 34 [place]: 161 QRS: 39 QRSD: 85 T: 36 QT: 419 QTc: 446 Interpretive Statements Sinus rhythm Borderline T abnormalities, anterior leads Compared to ECG 04/18/2019 13:57:33 No significant changes Electronically Signed On 08-23-2019 4:28:51 PST by Eduard La MD CM:EKGRPT:ELECTROCARDIOGRAM REPORT 0015 0428 QUE CARRASCO DRAFT REPORT QUE BOCANEGRA DO
[2019-08-22 00:17] LABS: BASO % 0.1 % (0.0-1.0); HEMATOCRIT 34.6 % (37.0-47.0); HEMOGLOBIN 11.1 g/dl (12.0-16.0); LYMPH # 2.2 10*3/uL (1.3-4.4); LYMPH % 30.7 % (27.0-41.0); MEAN CORPUSCULAR HGB 29.8 pg (27.0-31.0); MEAN CORPUSCULAR HGB CONC 32.1 g/dl (33.0-37.0); MEAN PLATELET VOLUME 9.4 fl (9.6-12.3); MONO # 0.4 10*3/uL (0.1-1.0); MONO % 5.9 % (3.0-9.0); NEUT # 4.5 10*3/uL (2.3-7.9); NEUT % 62.5 % (47.0-73.0); PLATELET COUNT AUTOMATED 345 10*3/uL (130-400); RED BLOOD COUNT 3.72 10*6/uL (4.10-5.10); RED CELL DISTRI WIDTH 12.2 % (0-14.5); WHITE BLOOD COUNT 7.2 10*3/uL (4.8-10.8)
[2019-08-22 00:34] LABS: ALBUMIN 3.1 gm/dl (3.1-4.5); ALKALINE PHOSPHATASE 52 U/L (45-117); BUN 14 mg/dl (7-24); CHLORIDE 106 mmol/L (98-107); CREATININE 1.12 mg/dL (0.55-1.02); POTASSIUM 3.5 mmol/L (3.5-5.1); SGOT/AST 19 IU/L (3-35); SGPT/ALT 16 U/L (12-78); SODIUM 138 mmol/L (136-145); TOTAL PROTEIN 7.5 gm/dL (6.4-8.2)
[2019-08-22 00:36] LABS: TROPONIN I < 0.015 ng/ml (<0.045)
[2019-08-22 01:03] LABS: BILIRUBIN NEGATIVE (NEGATIVE); BLOOD NEGATIVE (NEGATIVE); CLARITY CLEAR (CLEAR); COLOR YELLOW (YELLOW); GLUCOSE NEGATIVE (NEGATIVE); KETONE NEGATIVE (NEGATIVE); LEUKO ESTERASE 1+ (NEGATIVE); NITRITE NEGATIVE (NEGATIVE); SPECIFIC GRAVITY 1.015 (1.005-1.030); UROBILINOGEN 0.2 E.U./dl (0.2-1.0)
[2019-08-22 01:10] LABS: BACTERIA 1+; WBC 21-30 wbc/hpf (0-5)
[2019-08-22 01:51] VITALS: BP 104/57
[2019-08-22] MEDS ORDERED: MACROBID100 M1 PO (02:58)
== END 2019-08-22 03:18 | disposition home or self-care (01) ==
LOC: ED 23:10
PROVIDERS: Emergency Medicine
DX: K82.9 Disease of gallbladder, unspecified (principal); N39.0 Urinary tract infection, site not specified; R42 Dizziness and giddiness; J44.9 Chronic obstructive pulmonary disease, unspecified; K21.9 Gastro-esophageal reflux disease without esophagitis; E78.5 Hyperlipidemia, unspecified; E66.01 Morbid (severe) obesity due to excess calories; I12.9 Hypertensive chronic kidney disease with stage 1 through stage 4 chronic kidney disease, or unspecified chronic kidney disease; N18.3 Chronic kidney disease, stage 3 (moderate); G89.29 Other chronic pain; Z88.2 Allergy status to sulfonamides; Z88.8 Allergy status to other drugs, medicaments and biological substances; Z79.2 Long term (current) use of antibiotics; Z79.899 Other long term (current) drug therapy; Z79.82 Long term (current) use of aspirin; Z90.710 Acquired absence of both cervix and uterus; Z87.891 Personal history of nicotine dependence

== ENCOUNTER → 2019-11-03 | Day surgery (SDC) | payer OTHER ==
[~2019-11-03] VITALS: Ht 166.3 cm; Wt 93.0 kg
[~2019-11-03] MED LIST changes: +FISH OIL 1,2001 EACH PO; +FLUPHENAZINE H PO; +LEVOFLOXACIN250 M2 PO; +LIPITOR40 MG PO; +MACROBID100 M1 PO; +Motrin,Rufen800 MG PO; +NYST SUSP PO
[2019-11-03 09:23] VITALS: BP 134/71
[2019-11-03 10:24] VITALS: BP 95/54
[2019-11-03 10:40] VITALS: BP 104/62
[2019-11-03 10:53] VITALS: BP 112/66
== END | disposition home or self-care (01) ==
LOC: SDC 11-01 08:00
DX: K44.9 Diaphragmatic hernia without obstruction or gangrene (principal); K21.0 Gastro-esophageal reflux disease with esophagitis; I10 Essential (primary) hypertension; J43.9 Emphysema, unspecified; F41.9 Anxiety disorder, unspecified; E78.5 Hyperlipidemia, unspecified; F32.9 Major depressive disorder, single episode, unspecified; Z98.890 Other specified postprocedural states; Z79.899 Other long term (current) drug therapy

== ENCOUNTER 2019-11-25 04:45 | Emergency (ER) | payer OTHER ==
[~2019-11-25] VITALS: Ht 165.1 cm; Wt 92.1 kg
[~2019-11-25 04:45] MED LIST changes: -LEVOFLOXACIN250 M2 PO; -Motrin,Rufen800 MG PO
[2019-11-25 04:52] VITALS: BP 116/66
[2019-11-25 05:45] LABS: HEMATOCRIT 35.8 % (37.0-47.0); HEMOGLOBIN 11.7 g/dl (12.0-16.0); LYMPH # 2.3 10*3/uL (1.3-4.4); LYMPH % 38.1 % (27.0-41.0); MEAN CELL VOLUME 93.5 fl (81.0-99.0); MEAN CORPUSCULAR HGB 30.5 pg (27.0-31.0); MEAN CORPUSCULAR HGB CONC 32.7 g/dl (33.0-37.0); MEAN PLATELET VOLUME 9.8 fl (9.6-12.3); MONO # 0.5 10*3/uL (0.1-1.0); MONO % 8.1 % (3.0-9.0); NEUT # 3.2 10*3/uL (2.3-7.9); NEUT % 53.1 % (47.0-73.0); PLATELET COUNT AUTOMATED 287 10*3/uL (130-400); RED BLOOD COUNT 3.83 10*6/uL (4.10-5.10)
[2019-11-25 05:57] LABS: ALBUMIN 3.7 gm/dl (3.1-4.5); CREATININE 1.22 mg/dL (0.55-1.02); POTASSIUM 3.6 mmol/L (3.5-5.1); TOTAL PROTEIN 7.8 gm/dL (6.4-8.2)
[2019-11-25 06:24] LABS: BILIRUBIN NEGATIVE (NEGATIVE); BLOOD TRACE-INTACT (NEGATIVE); CLARITY SL CLOUDY (CLEAR); COLOR YELLOW (YELLOW); GLUCOSE NEGATIVE (NEGATIVE); KETONE NEGATIVE (NEGATIVE); SPECIFIC GRAVITY 1.015 (1.005-1.030)
[2019-11-25 06:25] LABS: BACTERIA 1+; LEUKO ESTERASE 1+ (NEGATIVE); MUCOUS TRACE; NITRITE NEGATIVE (NEGATIVE); UROBILINOGEN 0.2 E.U./dl (0.2-1.0)
[2019-11-25] MEDS ORDERED: LEVOFLOXACIN250 M2 PO (07:02)
[2019-11-25] MEDS ORDERED: Motrin,Rufen800 MG PO (07:02)
== END 2019-11-25 07:20 | disposition home or self-care (01) ==
LOC: ED 04:45
PROVIDERS: Emergency Medicine
DX: G89.29 Other chronic pain (principal); M54.5 Low back pain; N39.0 Urinary tract infection, site not specified; G24.01 Drug induced subacute dyskinesia; J44.9 Chronic obstructive pulmonary disease, unspecified; K21.9 Gastro-esophageal reflux disease without esophagitis; E66.01 Morbid (severe) obesity due to excess calories; I12.9 Hypertensive chronic kidney disease with stage 1 through stage 4 chronic kidney disease, or unspecified chronic kidney disease; N18.3 Chronic kidney disease, stage 3 (moderate); E78.00 Pure hypercholesterolemia, unspecified; Z88.2 Allergy status to sulfonamides; Z88.8 Allergy status to other drugs, medicaments and biological substances; Z79.899 Other long term (current) drug therapy; Z79.82 Long term (current) use of aspirin; Z90.710 Acquired absence of both cervix and uterus; Z87.891 Personal history of nicotine dependence

== ENCOUNTER 2020-04-07 20:34 | Emergency (ER) | payer OTHER ==
[~2020-04-07] VITALS: Ht 165.1 cm; Wt 95.3 kg
[~2020-04-07 20:34] MED LIST changes: +LEVOFLOXACIN250 M2 PO; +Motrin,Rufen800 MG PO
[2020-04-07 20:45] VITALS: BP 128/72
== END 2020-04-08 01:10 | disposition home or self-care (01) ==
LOC: ED 20:34
DX: S46.912A Strain of unspecified muscle, fascia and tendon at shoulder and upper arm level, left arm, initial encounter (principal); E78.5 Hyperlipidemia, unspecified; K21.9 Gastro-esophageal reflux disease without esophagitis; J44.9 Chronic obstructive pulmonary disease, unspecified; Z88.2 Allergy status to sulfonamides; Z88.8 Allergy status to other drugs, medicaments and biological substances; Z79.899 Other long term (current) drug therapy; Z79.82 Long term (current) use of aspirin; X58.XXXA Exposure to other specified factors, initial encounter; Y93.89 Activity, other specified; Y92.89 Other specified places as the place of occurrence of the external cause; Y99.8 Other external cause status

== ENCOUNTER → 2020-04-30 | Outpatient (CLI) | payer OTHER | END | disposition home or self-care (01) | LOC: RAD 09:52 → MAMMO 10:30 | DX: N63.11 Unspecified lump in the right breast, upper outer quadrant (principal); M85.89 Other specified disorders of bone density and structure, multiple sites; Z78.0 Asymptomatic menopausal state ==

== ENCOUNTER 2020-08-27 22:23 | Emergency (ER) | payer OTHER ==
[~2020-08-27] VITALS: Ht 165.1 cm; Wt 99.3 kg
[2020-08-28] MEDS ORDERED: CYCLOBENZAPRINE10 MG PO (02:34)
[2020-08-28 02:35] VITALS: BP 123/70
== END 2020-08-28 02:48 | disposition home or self-care (01) ==
LOC: ED 22:23
DX: M54.12 Radiculopathy, cervical region (principal); M25.512 Pain in left shoulder; M54.9 Dorsalgia, unspecified; M19.90 Unspecified osteoarthritis, unspecified site; J44.9 Chronic obstructive pulmonary disease, unspecified; E78.5 Hyperlipidemia, unspecified; Z88.2 Allergy status to sulfonamides; Z88.8 Allergy status to other drugs, medicaments and biological substances; Z79.899 Other long term (current) drug therapy; Z87.891 Personal history of nicotine dependence

== ENCOUNTER → 2020-09-25 | Outpatient (CLI) | payer OTHER | END | disposition home or self-care (01) | LOC: COVID19 14:13 | PROVIDERS: ATTEND Nurse Practitioner Primary Care | DX: Z20.828 Contact with and (suspected) exposure to other viral communicable diseases (principal) ==

== ENCOUNTER 2020-10-17 21:07 | Emergency (ER) | payer OTHER ==
[~2020-10-17] VITALS: Ht 167.6 cm; Wt 99.3 kg
[2020-10-17 21:21] VITALS: BP 108/64
[2020-10-17] MEDS ORDERED: MEDROL DOSEPAK4 MG PO (23:17)
== END 2020-10-17 23:34 | disposition home or self-care (01) ==
LOC: ED
DX: M25.511 Pain in right shoulder (principal); M79.642 Pain in left hand; Z88.2 Allergy status to sulfonamides; Z88.8 Allergy status to other drugs, medicaments and biological substances; Z79.899 Other long term (current) drug therapy; Z87.891 Personal history of nicotine dependence

== ENCOUNTER 2021-03-04 19:50 | Emergency (ER) | payer OTHER ==
[2021-03-04 19:52] VITALS: BP 113/64
== END 2021-03-04 23:05 | disposition home or self-care (01) ==
LOC: ED 19:50
DX: M79.671 Pain in right foot (principal); Z88.2 Allergy status to sulfonamides; Z88.8 Allergy status to other drugs, medicaments and biological substances; Z79.82 Long term (current) use of aspirin; Z98.890 Other specified postprocedural states; Z90.711 Acquired absence of uterus with remaining cervical stump

== ENCOUNTER 2021-04-16 02:11 | Emergency (ER) | payer OTHER ==
[~2021-04-16] VITALS: Ht 165.1 cm; Wt 99.8 kg
[2021-04-16 02:20] VITALS: BP 125/64
[2021-04-16 03:21] LABS: HEMATOCRIT 36.6 % (37.0-47.0); LYMPH # 2.1 10*3/uL (1.3-4.4); LYMPH % 30.2 % (27.0-41.0); MEAN CELL VOLUME 90.4 fl (81.0-99.0); MEAN CORPUSCULAR HGB 28.9 pg (27.0-31.0); MEAN PLATELET VOLUME 9.4 fl (9.6-12.3); MONO # 0.6 10*3/uL (0.1-1.0); MONO % 8.3 % (3.0-9.0); NEUT # 4.2 10*3/uL (2.3-7.9); NEUT % 61.2 % (47.0-73.0); PLATELET COUNT AUTOMATED 279 10*3/uL (130-400); RED BLOOD COUNT 4.05 10*6/uL (4.10-5.10); RED CELL DISTRI WIDTH 13.8 % (0-14.5); WHITE BLOOD COUNT 6.8 10*3/uL (4.8-10.8)
[2021-04-16 03:36] LABS: ALBUMIN 3.1 gm/dl (3.1-4.5); ALKALINE PHOSPHATASE 73 U/L (45-117); BUN 13 mg/dl (7-24); CHLORIDE 105 mmol/L (98-107); CREATININE 0.91 mg/dL (0.55-1.02); LIPASE 172 U/L (73-393); POTASSIUM 3.4 mmol/L (3.5-5.1); SGOT/AST 19 IU/L (3-35); SGPT/ALT 25 U/L (12-78); SODIUM 137 mmol/L (136-145); TOTAL PROTEIN 7.4 gm/dL (6.4-8.2)
[2021-04-16 04:31] LABS: BILIRUBIN Negative (Negative); BLOOD Negative (Negative); CLARITY Clear (Clear); COLOR Yellow (Yellow); GLUCOSE Negative (Negative); KETONE Negative (Negative); LEUKO ESTERASE Negative (Negative); NITRITE Negative (Negative); SPECIFIC GRAVITY <= 1.005 (1.001-1.030); UROBILINOGEN 0.2 E.U./dl (0.0-1.0)
== END 2021-04-16 07:10 | disposition home or self-care (01) ==
LOC: ED 02:11
PROVIDERS: Emergency Medicine
DX: K80.20 Calculus of gallbladder without cholecystitis without obstruction (principal); N18.9 Chronic kidney disease, unspecified; J44.9 Chronic obstructive pulmonary disease, unspecified; K21.9 Gastro-esophageal reflux disease without esophagitis; E78.5 Hyperlipidemia, unspecified; Z90.711 Acquired absence of uterus with remaining cervical stump; Z88.2 Allergy status to sulfonamides; Z88.8 Allergy status to other drugs, medicaments and biological substances; Z79.899 Other long term (current) drug therapy; Z79.82 Long term (current) use of aspirin; Z98.890 Other specified postprocedural states; Z87.891 Personal history of nicotine dependence

== ENCOUNTER 2021-05-31 09:03 | Inpatient (IN) | payer OTHER ==
[~2021-05-31] VITALS: Ht 165.1 cm; Wt 97.9 kg
[2021-05-31 09:13] VITALS: BP 114/69
[2021-05-31 09:54] LABS: LYMPH # 1.2 10*3/uL (1.3-4.4); LYMPH % 25.2 % (27.0-41.0); MEAN CELL VOLUME 92.9 fl (81.0-99.0); MEAN CORPUSCULAR HGB 29.3 pg (27.0-31.0); MEAN CORPUSCULAR HGB CONC 31.5 g/dl (33.0-37.0); MEAN PLATELET VOLUME 9.6 fl (9.6-12.3); MONO # 0.4 10*3/uL (0.1-1.0); MONO % 7.3 % (3.0-9.0); NEUT # 3.2 10*3/uL (2.3-7.9); NEUT % 67.3 % (47.0-73.0); PLATELET COUNT AUTOMATED 239 10*3/uL (130-400); RED CELL DISTRI WIDTH 13.2 % (0-14.5); WHITE BLOOD COUNT 4.8 10*3/uL (4.8-10.8)
[2021-05-31 10:09] LABS: ALBUMIN 3.6 gm/dl (3.1-4.5); ALKALINE PHOSPHATASE 79 U/L (45-117); BUN 8 mg/dl (7-24); CHLORIDE 106 mmol/L (98-107); CREATININE 0.99 mg/dL (0.55-1.02); LIPASE 130 U/L (73-393); POTASSIUM 3.7 mmol/L (3.5-5.1); SGOT/AST 21 IU/L (3-35); SGPT/ALT 23 U/L (12-78); SODIUM 138 mmol/L (136-145); TOTAL PROTEIN 7.7 gm/dL (6.4-8.2); URIC ACID 5.9 mg/dL (2.6-6.0)
[2021-05-31 13:03] VITALS: BP 122/83
[2021-05-31 15:00] VITALS: BP 131/74
[2021-05-31 19:29] VITALS: BP 118/73
[2021-06-01] VITALS: BP 113/87
[2021-06-01 06:12] LABS: HEMATOCRIT 35.8 % (37.0-47.0); LYMPH # 1.1 10*3/uL (1.3-4.4); LYMPH % 30.3 % (27.0-41.0); MEAN CELL VOLUME 94.7 fl (81.0-99.0); MEAN CORPUSCULAR HGB 29.4 pg (27.0-31.0); MEAN PLATELET VOLUME 9.8 fl (9.6-12.3); MONO # 0.2 10*3/uL (0.1-1.0); MONO % 6.6 % (3.0-9.0); NEUT # 2.3 10*3/uL (2.3-7.9); NEUT % 63.1 % (47.0-73.0); PLATELET COUNT AUTOMATED 222 10*3/uL (130-400); RED BLOOD COUNT 3.78 10*6/uL (4.10-5.10); RED CELL DISTRI WIDTH 13.3 % (0-14.5); WHITE BLOOD COUNT 3.6 10*3/uL (4.8-10.8)
[2021-06-01 06:34] LABS: BUN 6 mg/dl (7-24); CHLORIDE 109 mmol/L (98-107); CREATININE 0.83 mg/dL (0.55-1.02); POTASSIUM 3.8 mmol/L (3.5-5.1); SODIUM 141 mmol/L (136-145)
[2021-06-01 08:00] VITALS: BP 120/58
[2021-06-01 12:00] VITALS: BP 120/58
[2021-06-01 16:00] VITALS: BP 103/40
[2021-06-01] MEDS ORDERED: GNP FISH OIL 11 EAC1 PO (17:19)
[2021-06-01] MEDS ORDERED: PROTONIX20 MG PO (17:32)
[2021-06-01] MEDS ORDERED: CICLOPIROX T (17:34)
[2021-06-01] MEDS ORDERED: DULE1ARO1 INH (17:37)
[2021-06-01] MEDS ORDERED: MELOXICAM15 MG PO (17:39)
[2021-06-01] MEDS ORDERED: DICLOFENAC SOD100 G1 T (17:42)
[2021-06-01] MEDS ORDERED: ONDANSETRON HYDR4 MG PO (17:44)
[2021-06-01] MEDS ORDERED: CYCLOBENZAPRINE10 MG PO (17:46)
[2021-06-01 20:00] VITALS: BP 112/48
[2021-06-02] VITALS: BP 112/52; BP 113/52
[2021-06-02 05:46] LABS: BUN 9 mg/dl (7-24); CHLORIDE 106 mmol/L (98-107); CREATININE 0.88 mg/dL (0.55-1.02); POTASSIUM 4.5 mmol/L (3.5-5.1); SODIUM 138 mmol/L (136-145)
[2021-06-02 06:10] LABS: HEMATOCRIT 37.6 % (37.0-47.0); LYMPH # 1.5 10*3/uL (1.3-4.4); LYMPH % 34.5 % (27.0-41.0); MEAN CELL VOLUME 91.7 fl (81.0-99.0); MEAN CORPUSCULAR HGB 28.5 pg (27.0-31.0); MEAN CORPUSCULAR HGB CONC 31.1 g/dl (33.0-37.0); MEAN PLATELET VOLUME 9.7 fl (9.6-12.3); MONO # 0.3 10*3/uL (0.1-1.0); MONO % 5.8 % (3.0-9.0); NEUT # 2.7 10*3/uL (2.3-7.9); NEUT % 59.5 % (47.0-73.0); PLATELET COUNT AUTOMATED 284 10*3/uL (130-400); RED CELL DISTRI WIDTH 13.1 % (0-14.5); WHITE BLOOD COUNT 4.5 10*3/uL (4.8-10.8)
[2021-06-02 08:00] VITALS: BP 113/55
[2021-06-02] MEDS ORDERED: DOXYCYCLINE100 M3 PO (10:23)
== END 2021-06-02 14:03 | disposition home or self-care (01) | DRG 383 ==
LOC: ED 09:03 → EDHOLD 12:43 → 4E 17:31
PROVIDERS: Emergency Medicine; Family Medicine; Internal Medicine; ADMIT Family Medicine; ATTEND Family Medicine
DX: L03.113 Cellulitis of right upper limb (principal); L02.511 Cutaneous abscess of right hand; F25.9 Schizoaffective disorder, unspecified; K63.5 Polyp of colon; M54.12 Radiculopathy, cervical region; K80.10 Calculus of gallbladder with chronic cholecystitis without obstruction; Z66 Do not resuscitate; Z51.5 Encounter for palliative care; N18.31 Chronic kidney disease, stage 3a; E66.01 Morbid (severe) obesity due to excess calories; R73.9 Hyperglycemia, unspecified; J44.9 Chronic obstructive pulmonary disease, unspecified; E78.5 Hyperlipidemia, unspecified; F32.9 Major depressive disorder, single episode, unspecified; K21.9 Gastro-esophageal reflux disease without esophagitis; F41.1 Generalized anxiety disorder; G89.29 Other chronic pain; M25.561 Pain in right knee; M17.12 Unilateral primary osteoarthritis, left knee; D72.819 Decreased white blood cell count, unspecified; D64.9 Anemia, unspecified; Z88.2 Allergy status to sulfonamides; Z88.8 Allergy status to other drugs, medicaments and biological substances; Z90.710 Acquired absence of both cervix and uterus; Z90.79 Acquired absence of other genital organ(s); Z90.722 Acquired absence of ovaries, bilateral; Z87.891 Personal history of nicotine dependence; Z83.3 Family history of diabetes mellitus; Z82.49 Family history of ischemic heart disease and other diseases of the circulatory system; Z84.89 Family history of other specified conditions; Z79.899 Other long term (current) drug therapy; Z79.82 Long term (current) use of aspirin; Z87.440 Personal history of urinary (tract) infections; Z68.35 Body mass index [BMI] 35.0-35.9, adult

== ENCOUNTER 2021-06-16 02:00 | Emergency (ER) | payer OTHER ==
[~2021-06-16] VITALS: Ht 165.1 cm; Wt 97.5 kg
[~2021-06-16 02:00] MED LIST changes: +CICLOPIROX T; +DICLOFENAC SOD100 G1 T; +DOXYCYCLINE100 M3 PO; +GNP FISH OIL 11 EAC1 PO; +MELOXICAM15 MG PO; +ONDANSETRON HYDR4 MG PO; +PROTONIX20 MG PO
[2021-06-16 02:10] VITALS: BP 114/58
[2021-06-16 02:44] LABS: BASO % 0.1 % (0.0-1.0); HEMATOCRIT 31.1 % (37.0-47.0); LYMPH # 0.8 10*3/uL (1.3-4.4); LYMPH % 11.4 % (27.0-41.0); MEAN CELL VOLUME 90.1 fl (81.0-99.0); MEAN CORPUSCULAR HGB 28.7 pg (27.0-31.0); MEAN CORPUSCULAR HGB CONC 31.8 g/dl (33.0-37.0); MEAN PLATELET VOLUME 9.7 fl (9.6-12.3); MONO # 0.8 10*3/uL (0.1-1.0); MONO % 10.3 % (3.0-9.0); NEUT # 5.6 10*3/uL (2.3-7.9); NEUT % 77.8 % (47.0-73.0); PLATELET COUNT AUTOMATED 307 10*3/uL (130-400); RED BLOOD COUNT 3.45 10*6/uL (4.10-5.10); RED CELL DISTRI WIDTH 13.4 % (0-14.5); WHITE BLOOD COUNT 7.3 10*3/uL (4.8-10.8)
[2021-06-16 03:00] LABS: ALBUMIN 2.1 gm/dl (3.1-4.5); ALKALINE PHOSPHATASE 71 U/L (45-117); BUN 9 mg/dl (7-24); CHLORIDE 102 mmol/L (98-107); LIPASE 37 U/L (73-393); POTASSIUM 3.2 mmol/L (3.5-5.1); SGOT/AST 19 IU/L (3-35); SGPT/ALT 14 U/L (12-78); SODIUM 137 mmol/L (136-145); TOTAL PROTEIN 6.8 gm/dL (6.4-8.2)
== END 2021-06-16 06:12 | disposition home or self-care (01) ==
LOC: ED 02:00
PROVIDERS: Internal Medicine
DX: G89.18 Other acute postprocedural pain (principal); Z20.822 Contact with and (suspected) exposure to COVID-19; D64.9 Anemia, unspecified; E88.09 Other disorders of plasma-protein metabolism, not elsewhere classified; E87.6 Hypokalemia; R10.84 Generalized abdominal pain; Z87.891 Personal history of nicotine dependence; Z90.710 Acquired absence of both cervix and uterus; Z98.890 Other specified postprocedural states; Z79.82 Long term (current) use of aspirin; Z79.899 Other long term (current) drug therapy; Z88.2 Allergy status to sulfonamides; Z88.8 Allergy status to other drugs, medicaments and biological substances

== ENCOUNTER → 2021-08-14 | Day surgery (SDC) | payer OTHER ==
[~2021-08-14] VITALS: Ht 165.1 cm; Wt 99.8 kg
[2021-08-14 10:55] VITALS: BP 117/78
[2021-08-14 12:47] VITALS: BP 122/78
[2021-08-14 13:02] VITALS: BP 119/84
[2021-08-14 13:17] VITALS: BP 114/76
== END | disposition home or self-care (01) ==
LOC: SDC 08-09 10:15
PROVIDERS: ATTEND Ophthalmology
DX: H25.811 Combined forms of age-related cataract, right eye (principal); F41.9 Anxiety disorder, unspecified; F32.9 Major depressive disorder, single episode, unspecified; I10 Essential (primary) hypertension; K21.9 Gastro-esophageal reflux disease without esophagitis; G89.29 Other chronic pain; J44.9 Chronic obstructive pulmonary disease, unspecified; Z79.82 Long term (current) use of aspirin; Z79.899 Other long term (current) drug therapy; Z20.822 Contact with and (suspected) exposure to COVID-19

== ENCOUNTER → 2021-09-04 | Outpatient (CLI) | payer OTHER | END | disposition home or self-care (01) | LOC: MAMMO 08:30 | PROVIDERS: ATTEND Nurse Practitioner Primary Care | DX: Z12.31 Encounter for screening mammogram for malignant neoplasm of breast (principal) ==

== ENCOUNTER → 2021-09-11 | Day surgery (SDC) | payer OTHER ==
[~2021-09-11] VITALS: Ht 165.1 cm; Wt 95.3 kg
[~2021-09-11] MED LIST changes: +ATORVASTATIN CA80 M1 PO
[2021-09-11 11:43] VITALS: BP 118/83
[2021-09-11 12:52] VITALS: BP 122/75
[2021-09-11 13:07] VITALS: BP 111/73
[2021-09-11 13:19] VITALS: BP 115/76
== END | disposition home or self-care (01) ==
LOC: SDC 09-06 10:45
PROVIDERS: ATTEND Ophthalmology
DX: H25.812 Combined forms of age-related cataract, left eye (principal); E11.22 Type 2 diabetes mellitus with diabetic chronic kidney disease; I12.9 Hypertensive chronic kidney disease with stage 1 through stage 4 chronic kidney disease, or unspecified chronic kidney disease; N18.9 Chronic kidney disease, unspecified; F41.9 Anxiety disorder, unspecified; F32.9 Major depressive disorder, single episode, unspecified; K21.9 Gastro-esophageal reflux disease without esophagitis; Z79.899 Other long term (current) drug therapy; J44.9 Chronic obstructive pulmonary disease, unspecified; E78.5 Hyperlipidemia, unspecified; F25.9 Schizoaffective disorder, unspecified; Z79.82 Long term (current) use of aspirin; Z20.822 Contact with and (suspected) exposure to COVID-19

== ENCOUNTER → 2021-09-17 | Outpatient (CLI) | payer OTHER | END | disposition home or self-care (01) | LOC: MAMMO 13:47 | PROVIDERS: ATTEND Nurse Practitioner Primary Care | DX: R92.8 Other abnormal and inconclusive findings on diagnostic imaging of breast (principal); N64.59 Other signs and symptoms in breast; N63.0 Unspecified lump in unspecified breast ==

== ENCOUNTER 2021-12-07 06:22 | Emergency (ER) | payer OTHER ==
[~2021-12-07] VITALS: Ht 165.1 cm; Wt 96.2 kg
[2021-12-07 06:24] VITALS: BP 120/54
[2021-12-07 08:48] LABS: BASO % 0.2 % (0.0-1.0); HEMATOCRIT 36.8 % (37.0-47.0); LYMPH # 1.1 10*3/uL (1.3-4.4); LYMPH % 20.1 % (27.0-41.0); MEAN CORPUSCULAR HGB 28.9 pg (27.0-31.0); MEAN CORPUSCULAR HGB CONC 32.1 g/dl (33.0-37.0); MEAN PLATELET VOLUME 9.1 fl (9.6-12.3); MONO # 0.3 10*3/uL (0.1-1.0); MONO % 6.3 % (3.0-9.0); NEUT # 3.9 10*3/uL (2.3-7.9); PLATELET COUNT AUTOMATED 292 10*3/uL (130-400); RED BLOOD COUNT 4.09 10*6/uL (4.10-5.10); RED CELL DISTRI WIDTH 12.8 % (0-14.5); WHITE BLOOD COUNT 5.3 10*3/uL (4.8-10.8)
[2021-12-07 09:25] LABS: ALKALINE PHOSPHATASE 88 U/L (45-117); BUN 6 mg/dl (7-24); CHLORIDE 108 mmol/L (98-107); CREATININE 0.82 mg/dL (0.55-1.02); POTASSIUM 3.5 mmol/L (3.5-5.1); SGOT/AST 9 IU/L (3-35); SGPT/ALT 18 U/L (12-78); SODIUM 140 mmol/L (136-145); TOTAL PROTEIN 7.5 gm/dL (6.4-8.2)
== END 2021-12-07 09:38 | disposition home or self-care (01) ==
LOC: ED 06:22
PROVIDERS: Student in an Organized Health Care Education/Training Program
DX: R53.1 Weakness (principal); M25.512 Pain in left shoulder; M25.511 Pain in right shoulder; Z88.2 Allergy status to sulfonamides; Z88.8 Allergy status to other drugs, medicaments and biological substances; Z79.899 Other long term (current) drug therapy; Z90.710 Acquired absence of both cervix and uterus; Z98.890 Other specified postprocedural states; Z87.891 Personal history of nicotine dependence

== ENCOUNTER 2022-01-04 01:13 | Emergency (ER) | payer OTHER ==
[2022-01-04 01:20] VITALS: BP 122/74
[2022-01-04] MEDS ORDERED: ELIMITE 5%60 GM T (02:34)
== END 2022-01-04 02:43 | disposition home or self-care (01) ==
LOC: ED 01:13
DX: L30.9 Dermatitis, unspecified (principal); Z88.2 Allergy status to sulfonamides; Z88.6 Allergy status to analgesic agent; Z79.899 Other long term (current) drug therapy; Z90.710 Acquired absence of both cervix and uterus; Z87.891 Personal history of nicotine dependence

== ENCOUNTER 2022-03-23 16:28 | Observation (INO) | payer OTHER ==
[~2022-03-23] VITALS: Ht 165.1 cm; Wt 89.6 kg
[~2022-03-23 16:28] MED LIST changes: +ELIMITE 5%60 GM T
[2022-03-23 17:01] VITALS: BP 120/58
[2022-03-23 18:06] LABS: HEMATOCRIT 35.9 % (37.0-47.0); LYMPH # 1.1 10*3/uL (1.3-4.4); LYMPH % 34.3 % (27.0-41.0); MEAN CORPUSCULAR HGB 28.4 pg (27.0-31.0); MEAN CORPUSCULAR HGB CONC 32.3 g/dl (33.0-37.0); MEAN PLATELET VOLUME 9.1 fl (9.6-12.3); MONO # 0.2 10*3/uL (0.1-1.0); MONO % 7.5 % (3.0-9.0); NEUT # 1.9 10*3/uL (2.3-7.9); NEUT % 58.2 % (47.0-73.0); PLATELET COUNT AUTOMATED 286 10*3/uL (130-400); RED BLOOD COUNT 4.08 10*6/uL (4.10-5.10); RED CELL DISTRI WIDTH 13.2 % (0-14.5); WHITE BLOOD COUNT 3.2 10*3/uL (4.8-10.8)
[2022-03-23 18:25] LABS: ACT PARTIAL THROMBO TIME 25.4 SECONDS (20.0-32.1)
[2022-03-23 18:33] LABS: BILIRUBIN Negative (Negative); BLOOD Negative (Negative); CLARITY Clear (Clear); COLOR Yellow (Yellow); GLUCOSE Negative (Negative); KETONE Negative (Negative); LEUKO ESTERASE Negative (Negative); NITRITE Negative (Negative); SPECIFIC GRAVITY <= 1.005 (1.001-1.030); UROBILINOGEN 0.2 E.U./dl (0.0-1.0)
[2022-03-23 18:44] LABS: ALKALINE PHOSPHATASE 72 U/L (45-117); BUN 10 mg/dl (7-24); CHLORIDE 106 mmol/L (98-107); CREATININE 1.05 mg/dL (0.55-1.02); LIPASE 153 U/L (73-393); POTASSIUM 3.3 mmol/L (3.5-5.1); SGOT/AST 18 IU/L (3-35); SGPT/ALT 19 U/L (12-78); SODIUM 137 mmol/L (136-145); TOTAL PROTEIN 7.1 gm/dL (6.4-8.2)
[2022-03-23 18:50] LABS: EPITHELIAL CELLS 0-2; RBC 0-2 rbc/hpf (0-2)
[2022-03-23 21:45] VITALS: BP 124/60
[2022-03-23 23:40] VITALS: BP 123/65
[2022-03-24 06:38] LABS: BUN 9 mg/dl (7-24); CHLORIDE 108 mmol/L (98-107); CREATININE 0.72 mg/dL (0.55-1.02); FREE T4 0.97 ng/dl (0.76-1.46); POTASSIUM 3.5 mmol/L (3.5-5.1); SODIUM 138 mmol/L (136-145)
[2022-03-24 06:42] LABS: HEMATOCRIT 34.6 % (37.0-47.0); LYMPH # 1.6 10*3/uL (1.3-4.4); LYMPH % 52.2 % (27.0-41.0); MEAN CELL VOLUME 89.4 fl (81.0-99.0); MEAN CORPUSCULAR HGB 28.4 pg (27.0-31.0); MEAN CORPUSCULAR HGB CONC 31.8 g/dl (33.0-37.0); MEAN PLATELET VOLUME 9.2 fl (9.6-12.3); MONO # 0.2 10*3/uL (0.1-1.0); MONO % 6.3 % (3.0-9.0); NEUT # 1.3 10*3/uL (2.3-7.9); NEUT % 41.5 % (47.0-73.0); PLATELET COUNT AUTOMATED 284 10*3/uL (130-400); RED BLOOD COUNT 3.87 10*6/uL (4.10-5.10); RED CELL DISTRI WIDTH 13.4 % (0-14.5)
[2022-03-24 08:00] VITALS: BP 102/69
[2022-03-24 12:00] VITALS: BP 117/76
[2022-03-24 16:00] VITALS: BP 100/51
== END 2022-03-24 18:27 | disposition home or self-care (01) ==
LOC: ED 16:28 → 4E 22:34 → EDHOLD 22:34 → 4E 23:05
PROVIDERS: Family Medicine; Nurse Practitioner Family; ADMIT Emergency Medicine; ATTEND Emergency Medicine
DX: R60.0 Localized edema (principal); E87.6 Hypokalemia; R79.1 Abnormal coagulation profile; Z88.2 Allergy status to sulfonamides; Z88.8 Allergy status to other drugs, medicaments and biological substances; Z79.82 Long term (current) use of aspirin; Z79.899 Other long term (current) drug therapy; Z90.710 Acquired absence of both cervix and uterus; Z98.890 Other specified postprocedural states

== ENCOUNTER 2022-09-12 23:28 | Emergency (ER) | payer OTHER ==
[~2022-09-12] VITALS: Ht 160 cm; Wt 95.8 kg
[2022-09-12 23:53] LABS: BASO % 0.2 % (0.0-1.0); HEMATOCRIT 33.7 % (37.0-47.0); LYMPH # 1.2 10*3/uL (1.3-4.4); LYMPH % 25.8 % (27.0-41.0); MEAN CELL VOLUME 90.8 fl (81.0-99.0); MEAN CORPUSCULAR HGB 29.1 pg (27.0-31.0); MEAN PLATELET VOLUME 8.9 fl (9.6-12.3); MONO # 0.3 10*3/uL (0.1-1.0); MONO % 7.6 % (3.0-9.0); NEUT # 2.9 10*3/uL (2.3-7.9); NEUT % 66.2 % (47.0-73.0); PLATELET COUNT AUTOMATED 260 10*3/uL (130-400); RED BLOOD COUNT 3.71 10*6/uL (4.10-5.10); RED CELL DISTRI WIDTH 13.5 % (0-14.5); WHITE BLOOD COUNT 4.5 10*3/uL (4.8-10.8)
[2022-09-13 00:04] LABS: ACT PARTIAL THROMBO TIME 23.5 SECONDS (20.0-32.1)
[2022-09-13 00:08] LABS: ALKALINE PHOSPHATASE 71 U/L (46-116); BUN 8 mg/dl (9-23); CHLORIDE 103 mmol/L (98-107); CREATININE 0.85 mg/dL (0.55-1.02); POTASSIUM 3.7 mmol/L (3.4-5.1); SGPT/ALT 10 U/L (10-49); SODIUM 136 mmol/L (136-145)
[2022-09-13 00:09] LABS: TOTAL PROTEIN 6.6 gm/dL (6.0-8.0)
[2022-09-13 01:57] LABS: BILIRUBIN Negative (Negative); BLOOD Negative (Negative); CLARITY Clear (Clear); COLOR Yellow (Yellow); GLUCOSE Negative (Negative); KETONE Negative (Negative); LEUKO ESTERASE Negative (Negative); NITRITE Negative (Negative); PH 6.5 (4.5-8.0); SPECIFIC GRAVITY <= 1.005 (1.001-1.030); UROBILINOGEN 0.2 E.U./dl (0.0-1.0)
[2022-09-13 02:14] LABS: EPITHELIAL CELLS 0-2; RBC 0-2 rbc/hpf (0-2); WBC 0-2 wbc/hpf (0-5)
[2022-09-13 03:28] VITALS: BP 103/65
[2022-09-13] MEDS ORDERED: CYCLOBENZAPRINE10 MG PO (04:17)
== END 2022-09-13 04:22 | disposition home or self-care (01) ==
LOC: ED 23:28
PROVIDERS: Emergency Medicine
DX: R07.9 Chest pain, unspecified (principal); M54.9 Dorsalgia, unspecified; J44.9 Chronic obstructive pulmonary disease, unspecified; K21.9 Gastro-esophageal reflux disease without esophagitis; E78.5 Hyperlipidemia, unspecified; E66.9 Obesity, unspecified; Z88.2 Allergy status to sulfonamides; Z88.8 Allergy status to other drugs, medicaments and biological substances; Z79.899 Other long term (current) drug therapy; N18.9 Chronic kidney disease, unspecified; Z90.710 Acquired absence of both cervix and uterus; Z87.891 Personal history of nicotine dependence

== ENCOUNTER 2022-12-07 00:08 | Emergency (ER) | payer OTHER ==
[~2022-12-07] VITALS: Ht 154.9 cm; Wt 76.2 kg
[2022-12-07 00:12] VITALS: BP 135/74
[2022-12-07 00:37] LABS: HEMATOCRIT 33.7 % (37.0-47.0); LYMPH # 1.2 10*3/uL (1.3-4.4); LYMPH % 20.4 % (27.0-41.0); MEAN CELL VOLUME 88.9 fl (81.0-99.0); MEAN CORPUSCULAR HGB 29.6 pg (27.0-31.0); MEAN CORPUSCULAR HGB CONC 33.2 g/dl (33.0-37.0); MEAN PLATELET VOLUME 9.1 fl (9.6-12.3); MONO # 0.3 10*3/uL (0.1-1.0); MONO % 5.3 % (3.0-9.0); NEUT # 4.2 10*3/uL (2.3-7.9); NEUT % 73.9 % (47.0-73.0); PLATELET COUNT AUTOMATED 335 10*3/uL (130-400); RED BLOOD COUNT 3.79 10*6/uL (4.10-5.10); WHITE BLOOD COUNT 5.7 10*3/uL (4.8-10.8)
[2022-12-07 00:46] LABS: BILIRUBIN Negative (Negative); BLOOD 2+ (Negative); CLARITY Clear (Clear); COLOR Yellow (Yellow); GLUCOSE Negative (Negative); KETONE Negative (Negative); LEUKO ESTERASE 1+ (Negative); NITRITE Negative (Negative); PH 5.5 (4.5-8.0); SPECIFIC GRAVITY 1.015 (1.001-1.030); UROBILINOGEN 0.2 E.U./dl (0.0-1.0)
[2022-12-07 00:58] LABS: ALKALINE PHOSPHATASE 70 U/L (46-116); BUN 5 mg/dl (9-23); CHLORIDE 100 mmol/L (98-107); POTASSIUM 3.1 mmol/L (3.4-5.1); SGPT/ALT 8 U/L (10-49); TOTAL PROTEIN 6.9 gm/dL (6.0-8.0)
== END 2022-12-07 04:18 | disposition home or self-care (01) ==
LOC: ED 00:08
PROVIDERS: Internal Medicine
DX: R31.9 Hematuria, unspecified (principal); I10 Essential (primary) hypertension; F41.9 Anxiety disorder, unspecified; F32.A Depression, unspecified; K21.9 Gastro-esophageal reflux disease without esophagitis; E87.8 Other disorders of electrolyte and fluid balance, not elsewhere classified; E83.42 Hypomagnesemia; E44.0 Moderate protein-calorie malnutrition; D64.9 Anemia, unspecified; Z68.31 Body mass index [BMI] 31.0-31.9, adult; Z88.2 Allergy status to sulfonamides; Z88.8 Allergy status to other drugs, medicaments and biological substances; Z90.710 Acquired absence of both cervix and uterus; Z98.890 Other specified postprocedural states; Z87.891 Personal history of nicotine dependence

== ENCOUNTER 2023-02-19 20:13 | Inpatient (IN) | payer OTHER ==
[~2023-02-19] VITALS: Ht 165.1 cm; Wt 82.3 kg
[2023-02-19 20:22] VITALS: BP 120/61
[2023-02-19 21:00] LABS: HEMATOCRIT 31.6 % (37.0-47.0); LYMPH # 0.8 10*3/uL (1.3-4.4); LYMPH % 21.4 % (27.0-41.0); MEAN CELL VOLUME 87.1 fl (81.0-99.0); MEAN CORPUSCULAR HGB 28.7 pg (27.0-31.0); MEAN CORPUSCULAR HGB CONC 32.9 g/dl (33.0-37.0); MEAN PLATELET VOLUME 8.6 fl (9.6-12.3); MONO # 0.2 10*3/uL (0.1-1.0); MONO % 6.1 % (3.0-9.0); NEUT # 2.8 10*3/uL (2.3-7.9); PLATELET COUNT AUTOMATED 299 10*3/uL (130-400); RED BLOOD COUNT 3.63 10*6/uL (4.10-5.10); RED CELL DISTRI WIDTH 12.8 % (0-14.5); WHITE BLOOD COUNT 3.9 10*3/uL (4.8-10.8)
[2023-02-19 21:24] LABS: ALKALINE PHOSPHATASE 78 U/L (46-116); BUN 10 mg/dl (9-23); CHLORIDE 96 mmol/L (98-107); POTASSIUM 2.5 mmol/L (3.4-5.1); TOTAL PROTEIN 7.3 gm/dL (6.0-8.0)
[2023-02-19 21:30] LABS: SGPT/ALT < 7 U/L (10-49)
[2023-02-19 22:37] VITALS: BP 131/89
[2023-02-19 23:09] LABS: BILIRUBIN Negative (Negative); BLOOD 3+ (Negative); CLARITY Cloudy (Clear); COLOR Orange (Yellow); GLUCOSE Negative (Negative); KETONE Trace (Negative); LEUKO ESTERASE 1+ (Negative); NITRITE Negative (Negative); PH 5.5 (4.5-8.0); SPECIFIC GRAVITY 1.015 (1.001-1.030); UROBILINOGEN 0.2 E.U./dl (0.0-1.0)
[2023-02-19 23:10] VITALS: BP 130/88
[2023-02-19 23:33] LABS: YEAST 3+
[2023-02-19 23:34] LABS: BACTERIA 2+; RBC 41-50 rbc/hpf (0-2); WBC 21-30 wbc/hpf (0-5)
[2023-02-19 23:40] VITALS: BP 118/73
[2023-02-20] VITALS (7 sets, daily range): BP systolic 112–141; BP diastolic 53–77
[2023-02-20 07:00] LABS: HEMATOCRIT 31.7 % (37.0-47.0); LYMPH # 0.3 10*3/uL (1.3-4.4); LYMPH % 11.1 % (27.0-41.0); MEAN CELL VOLUME 89.5 fl (81.0-99.0); MEAN CORPUSCULAR HGB CONC 31.2 g/dl (33.0-37.0); MONO % 1.3 % (3.0-9.0); NEUT # 2.6 10*3/uL (2.3-7.9); NEUT % 87.3 % (47.0-73.0); PLATELET COUNT AUTOMATED 319 10*3/uL (130-400); RED BLOOD COUNT 3.54 10*6/uL (4.10-5.10); RED CELL DISTRI WIDTH 12.8 % (0-14.5)
[2023-02-20 07:36] LABS: ALKALINE PHOSPHATASE 72 U/L (46-116); BUN 11 mg/dl (9-23); CHLORIDE 98 mmol/L (98-107); CHOLESTEROL 162 mg/dL (<200); FREE T4 1.16 ng/dl (0.89-1.76); LDL CHOLESTEROL 111 mg/dL (9-159); THYROID STIM HORMONE (HS) 1.137 uIU/ml (0.550-4.780); TRIGLYCERIDES 95 mg/dl (<150)
[2023-02-20 07:40] LABS: POTASSIUM 3.6 mmol/L (3.4-5.1)
[2023-02-20 07:41] LABS: SGPT/ALT < 7 U/L (10-49)
[2023-02-21] VITALS: BP 101/55
[2023-02-21 07:17] LABS: BASO % 0.1 % (0.0-1.0); HEMATOCRIT 28.2 % (37.0-47.0); LYMPH # 1.2 10*3/uL (1.3-4.4); LYMPH % 17.5 % (27.0-41.0); MEAN CELL VOLUME 87.6 fl (81.0-99.0); MEAN CORPUSCULAR HGB 28.6 pg (27.0-31.0); MEAN CORPUSCULAR HGB CONC 32.6 g/dl (33.0-37.0); MEAN PLATELET VOLUME 9.3 fl (9.6-12.3); MONO # 0.4 10*3/uL (0.1-1.0); NEUT # 5.4 10*3/uL (2.3-7.9); NEUT % 77.3 % (47.0-73.0); PLATELET COUNT AUTOMATED 320 10*3/uL (130-400); RED BLOOD COUNT 3.22 10*6/uL (4.10-5.10); RED CELL DISTRI WIDTH 13.3 % (0-14.5)
[2023-02-21 07:51] LABS: POTASSIUM 3.3 mmol/L (3.4-5.1)
[2023-02-21 08:00] VITALS: BP 104/53
[2023-02-21 12:00] VITALS: BP 106/52
[2023-02-21 16:00] VITALS: BP 112/66
[2023-02-21 20:00] VITALS: BP 106/58
[2023-02-22] VITALS: BP 105/61
[2023-02-22 08:00] VITALS: BP 128/61
[2023-02-22 08:26] LABS: BASO % 0.2 % (0.0-1.0); HEMATOCRIT 31.3 % (37.0-47.0); LYMPH # 1.4 10*3/uL (1.3-4.4); LYMPH % 21.9 % (27.0-41.0); MEAN CELL VOLUME 90.5 fl (81.0-99.0); MEAN CORPUSCULAR HGB 28.6 pg (27.0-31.0); MEAN CORPUSCULAR HGB CONC 31.6 g/dl (33.0-37.0); MEAN PLATELET VOLUME 9.1 fl (9.6-12.3); MONO # 0.3 10*3/uL (0.1-1.0); MONO % 4.2 % (3.0-9.0); NEUT # 4.6 10*3/uL (2.3-7.9); NEUT % 72.7 % (47.0-73.0); PLATELET COUNT AUTOMATED 336 10*3/uL (130-400); RED BLOOD COUNT 3.46 10*6/uL (4.10-5.10); RED CELL DISTRI WIDTH 13.6 % (0-14.5); WHITE BLOOD COUNT 6.3 10*3/uL (4.8-10.8)
[2023-02-22 08:41] LABS: POTASSIUM 3.3 mmol/L (3.4-5.1)
[2023-02-22 12:00] VITALS: BP 115/58
[2023-02-22 15:52] LABS: BILIRUBIN Negative (Negative); BLOOD 3+ (Negative); CLARITY Clear (Clear); COLOR Yellow (Yellow); GLUCOSE Negative (Negative); KETONE Negative (Negative); LEUKO ESTERASE Negative (Negative); NITRITE Negative (Negative); PH 5.5 (4.5-8.0); SPECIFIC GRAVITY <= 1.005 (1.001-1.030); UROBILINOGEN 0.2 E.U./dl (0.0-1.0)
[2023-02-22 15:59] LABS: URINE CREATININE RANDOM 19.11 mg/dL
[2023-02-22 16:00] VITALS: BP 108/50
[2023-02-22 16:08] LABS: BACTERIA 1+; EPITHELIAL CELLS 0-2; MUCOUS TRACE; RBC 21-30 rbc/hpf (0-2)
[2023-02-22 20:00] VITALS: BP 104/60
[2023-02-23] VITALS: BP 96/50
[2023-02-23 06:30] LABS: HEMATOCRIT 27.3 % (37.0-47.0); LYMPH # 1.4 10*3/uL (1.3-4.4); LYMPH % 22.6 % (27.0-41.0); MEAN CELL VOLUME 88.3 fl (81.0-99.0); MEAN CORPUSCULAR HGB 28.8 pg (27.0-31.0); MEAN CORPUSCULAR HGB CONC 32.6 g/dl (33.0-37.0); MEAN PLATELET VOLUME 8.9 fl (9.6-12.3); MONO # 0.5 10*3/uL (0.1-1.0); MONO % 7.5 % (3.0-9.0); NEUT # 4.2 10*3/uL (2.3-7.9); NEUT % 69.2 % (47.0-73.0); PLATELET COUNT AUTOMATED 308 10*3/uL (130-400); RED BLOOD COUNT 3.09 10*6/uL (4.10-5.10); RED CELL DISTRI WIDTH 13.5 % (0-14.5)
[2023-02-23 06:55] LABS: POTASSIUM 3.8 mmol/L (3.4-5.1)
[2023-02-23 08:00] VITALS: BP 137/53
[2023-02-23 12:00] VITALS: BP 150/75
[2023-02-23 16:00] VITALS: BP 116/55
[2023-02-23 20:00] VITALS: BP 115/58
[2023-02-24] VITALS: BP 115/60
[2023-02-24 06:03] LABS: POTASSIUM 4.1 mmol/L (3.4-5.1)
[2023-02-24 06:23] LABS: BASO % 0.2 % (0.0-1.0); HEMATOCRIT 29.4 % (37.0-47.0); LYMPH # 1.7 10*3/uL (1.3-4.4); LYMPH % 26.6 % (27.0-41.0); MEAN CELL VOLUME 88.6 fl (81.0-99.0); MEAN CORPUSCULAR HGB 28.6 pg (27.0-31.0); MEAN CORPUSCULAR HGB CONC 32.3 g/dl (33.0-37.0); MEAN PLATELET VOLUME 9.5 fl (9.6-12.3); MONO # 0.4 10*3/uL (0.1-1.0); MONO % 6.3 % (3.0-9.0); NEUT # 4.3 10*3/uL (2.3-7.9); NEUT % 65.7 % (47.0-73.0); PLATELET COUNT AUTOMATED 359 10*3/uL (130-400); RED BLOOD COUNT 3.32 10*6/uL (4.10-5.10); RED CELL DISTRI WIDTH 13.7 % (0-14.5); WHITE BLOOD COUNT 6.6 10*3/uL (4.8-10.8)
[2023-02-24 08:00] VITALS: BP 131/67
[2023-02-24 12:00] VITALS: BP 97/51
[2023-02-24 16:00] VITALS: BP 120/64
[2023-02-24 20:00] VITALS: BP 127/60; BP 140/70
[2023-02-25] VITALS: BP 125/64
[2023-02-25 07:17] LABS: BASO % 0.1 % (0.0-1.0); HEMATOCRIT 28.8 % (37.0-47.0); LYMPH # 1.5 10*3/uL (1.3-4.4); LYMPH % 16.6 % (27.0-41.0); MEAN CELL VOLUME 90.9 fl (81.0-99.0); MEAN CORPUSCULAR HGB 29.3 pg (27.0-31.0); MEAN CORPUSCULAR HGB CONC 32.3 g/dl (33.0-37.0); MEAN PLATELET VOLUME 9.2 fl (9.6-12.3); MONO # 0.6 10*3/uL (0.1-1.0); MONO % 7.2 % (3.0-9.0); NEUT # 6.7 10*3/uL (2.3-7.9); NEUT % 75.4 % (47.0-73.0); PLATELET COUNT AUTOMATED 343 10*3/uL (130-400); RED BLOOD COUNT 3.17 10*6/uL (4.10-5.10); WHITE BLOOD COUNT 8.9 10*3/uL (4.8-10.8)
[2023-02-25 07:29] LABS: POTASSIUM 3.8 mmol/L (3.4-5.1)
[2023-02-25 08:00] VITALS: BP 118/47
[2023-02-25] MEDS ORDERED: PREDNISONE10 MG PO (11:37)
== END 2023-02-25 12:10 | disposition home or self-care (01) | DRG 469 ==
LOC: ED 20:13 → EDHOLD 21:42 → 5E 21:42 → EDHOLD 23:15 → 5E 02-20 00:37
PROVIDERS: Internal Medicine; Internal Medicine Nephrology; Nurse Practitioner Family; Registered Nurse; Student in an Organized Health Care Education/Training Program; ADMIT Internal Medicine; ATTEND Internal Medicine
DX: N17.0 Acute kidney failure with tubular necrosis (principal); K21.9 Gastro-esophageal reflux disease without esophagitis; N18.4 Chronic kidney disease, stage 4 (severe); E44.0 Moderate protein-calorie malnutrition; E87.6 Hypokalemia; I12.9 Hypertensive chronic kidney disease with stage 1 through stage 4 chronic kidney disease, or unspecified chronic kidney disease; Z66 Do not resuscitate; E78.5 Hyperlipidemia, unspecified; F41.1 Generalized anxiety disorder; E66.01 Morbid (severe) obesity due to excess calories; J44.9 Chronic obstructive pulmonary disease, unspecified; M17.12 Unilateral primary osteoarthritis, left knee; L29.9 Pruritus, unspecified; D64.9 Anemia, unspecified; E87.8 Other disorders of electrolyte and fluid balance, not elsewhere classified; N30.01 Acute cystitis with hematuria; F25.9 Schizoaffective disorder, unspecified; F33.9 Major depressive disorder, recurrent, unspecified; M54.12 Radiculopathy, cervical region; Z88.2 Allergy status to sulfonamides; Z88.8 Allergy status to other drugs, medicaments and biological substances; Z90.710 Acquired absence of both cervix and uterus; Z90.722 Acquired absence of ovaries, bilateral; Z87.891 Personal history of nicotine dependence; Z83.3 Family history of diabetes mellitus; Z82.49 Family history of ischemic heart disease and other diseases of the circulatory system; Z51.5 Encounter for palliative care; Z68.30 Body mass index [BMI] 30.0-30.9, adult; N10 Acute pyelonephritis

== ENCOUNTER → 2023-02-27 | Outpatient (CLI) | payer OTHER ==
[2023-02-27 10:50] LABS: BASO % 0.3 % (0.0-1.0); HEMATOCRIT 34.1 % (37.0-47.0); MEAN CELL VOLUME 90.7 fl (81.0-99.0); MEAN PLATELET VOLUME 8.7 fl (9.6-12.3); MONO # 0.6 10*3/uL (0.1-1.0); MONO % 8.3 % (3.0-9.0); NEUT # 4.7 10*3/uL (2.3-7.9); NEUT % 63.4 % (47.0-73.0); PLATELET COUNT AUTOMATED 375 10*3/uL (130-400); RED BLOOD COUNT 3.76 10*6/uL (4.10-5.10); RED CELL DISTRI WIDTH 14.3 % (0-14.5); WHITE BLOOD COUNT 7.4 10*3/uL (4.8-10.8)
[2023-02-27 11:28] LABS: POTASSIUM 3.8 mmol/L (3.4-5.1)
== END | disposition home or self-care (01) ==
LOC: LAB 10:36
PROVIDERS: ATTEND Internal Medicine
DX: D64.9 Anemia, unspecified (principal); N17.9 Acute kidney failure, unspecified

== ENCOUNTER 2023-03-08 22:45 | Emergency (ER) | payer OTHER ==
[2023-03-08 23:31] LABS: HEMATOCRIT 29.8 % (37.0-47.0); LYMPH # 0.8 10*3/uL (1.3-4.4); LYMPH % 17.1 % (27.0-41.0); MEAN CELL VOLUME 89.2 fl (81.0-99.0); MEAN CORPUSCULAR HGB CONC 32.6 g/dl (33.0-37.0); MEAN PLATELET VOLUME 8.9 fl (9.6-12.3); MONO # 0.3 10*3/uL (0.1-1.0); MONO % 5.6 % (3.0-9.0); NEUT # 3.6 10*3/uL (2.3-7.9); NEUT % 77.1 % (47.0-73.0); PLATELET COUNT AUTOMATED 264 10*3/uL (130-400); RED BLOOD COUNT 3.34 10*6/uL (4.10-5.10); RED CELL DISTRI WIDTH 13.6 % (0-14.5); WHITE BLOOD COUNT 4.6 10*3/uL (4.8-10.8)
[2023-03-08 23:31] LABS: BILIRUBIN Negative (Negative); BLOOD 3+ (Negative); CLARITY Clear (Clear); COLOR Yellow (Yellow); GLUCOSE Negative (Negative); KETONE Negative (Negative); LEUKO ESTERASE Trace (Negative); NITRITE Negative (Negative); PH 5.5 (4.5-8.0); SPECIFIC GRAVITY <= 1.005 (1.001-1.030); UROBILINOGEN 0.2 E.U./dl (0.0-1.0)
[2023-03-08 23:39] LABS: RBC 41-50 rbc/hpf (0-2)
[2023-03-08 23:44] LABS: ACT PARTIAL THROMBO TIME 23.8 SECONDS (20.0-32.1)
[2023-03-08 23:53] LABS: POTASSIUM 4.2 mmol/L (3.4-5.1); TOTAL PROTEIN 6.6 gm/dL (6.0-8.0)
[2023-03-09 01:36] VITALS: BP 132/74
[2023-03-09] MEDS ORDERED: MIRALAX POWDER17 G1 PO (01:50)
== END 2023-03-09 02:25 | disposition home or self-care (01) ==
LOC: ED 22:45
PROVIDERS: Student in an Organized Health Care Education/Training Program
DX: K59.00 Constipation, unspecified (principal); N18.9 Chronic kidney disease, unspecified; N17.9 Acute kidney failure, unspecified; K44.9 Diaphragmatic hernia without obstruction or gangrene; E83.42 Hypomagnesemia; E44.1 Mild protein-calorie malnutrition; Z68.1 Body mass index [BMI] 19.9 or less, adult; D64.9 Anemia, unspecified; K40.90 Unilateral inguinal hernia, without obstruction or gangrene, not specified as recurrent; I12.9 Hypertensive chronic kidney disease with stage 1 through stage 4 chronic kidney disease, or unspecified chronic kidney disease; F41.9 Anxiety disorder, unspecified; F32.A Depression, unspecified; K21.9 Gastro-esophageal reflux disease without esophagitis; E78.00 Pure hypercholesterolemia, unspecified; Z79.899 Other long term (current) drug therapy

== ENCOUNTER 2023-03-21 12:18 | Emergency (ER) | payer OTHER ==
[~2023-03-21] VITALS: Ht 165.1 cm; Wt 95.3 kg
[~2023-03-21 12:18] MED LIST changes: +MIRALAX POWDER17 G1 PO
[2023-03-21 12:35] VITALS: BP 146/74
[2023-03-21 13:16] LABS: HEMATOCRIT 28.4 % (37.0-47.0); LYMPH # 0.6 10*3/uL (1.3-4.4); LYMPH % 10.8 % (27.0-41.0); MEAN CELL VOLUME 91.6 fl (81.0-99.0); MEAN CORPUSCULAR HGB 29.4 pg (27.0-31.0); MEAN PLATELET VOLUME 8.8 fl (9.6-12.3); MONO # 0.2 10*3/uL (0.1-1.0); MONO % 3.1 % (3.0-9.0); NEUT # 4.7 10*3/uL (2.3-7.9); NEUT % 85.7 % (47.0-73.0); PLATELET COUNT AUTOMATED 333 10*3/uL (130-400); RED CELL DISTRI WIDTH 13.5 % (0-14.5); WHITE BLOOD COUNT 5.5 10*3/uL (4.8-10.8)
[2023-03-21 13:22] LABS: BILIRUBIN Negative (Negative); BLOOD 3+ (Negative); CLARITY Clear (Clear); COLOR Yellow (Yellow); GLUCOSE Negative (Negative); KETONE Negative (Negative); LEUKO ESTERASE Trace (Negative); NITRITE Negative (Negative); PH 5.5 (4.5-8.0); SPECIFIC GRAVITY <= 1.005 (1.001-1.030); UROBILINOGEN 0.2 E.U./dl (0.0-1.0)
[2023-03-21 13:57] LABS: POTASSIUM 4.5 mmol/L (3.4-5.1); TOTAL PROTEIN 6.8 gm/dL (6.0-8.0)
[2023-03-21 14:07] LABS: RBC 16-20 rbc/hpf (0-2)
[2023-03-21 14:08] LABS: BACTERIA 1+
== END 2023-03-21 17:02 | disposition home or self-care (01) ==
LOC: ED 12:18
PROVIDERS: Nurse Practitioner Family
DX: U07.1 COVID-19 (principal); E86.0 Dehydration; R19.7 Diarrhea, unspecified; E87.1 Hypo-osmolality and hyponatremia; R11.2 Nausea with vomiting, unspecified; I10 Essential (primary) hypertension; F41.9 Anxiety disorder, unspecified; F32.A Depression, unspecified; K21.9 Gastro-esophageal reflux disease without esophagitis; E78.00 Pure hypercholesterolemia, unspecified; Z88.2 Allergy status to sulfonamides; Z88.8 Allergy status to other drugs, medicaments and biological substances; Z90.710 Acquired absence of both cervix and uterus; Z98.890 Other specified postprocedural states; Z87.891 Personal history of nicotine dependence

== ENCOUNTER → 2023-04-30 | Outpatient (CLI) | payer OTHER ==
[~2023-04-30] MED LIST changes: +PANTOPRAZOLE SO40 MG PO
[2023-04-30 14:48] LABS: BASO % 0.3 % (0.0-1.0); HEMATOCRIT 26.2 % (37.0-47.0); LYMPH # 1.5 10*3/uL (1.3-4.4); LYMPH % 38.7 % (27.0-41.0); MEAN CELL VOLUME 91.6 fl (81.0-99.0); MEAN CORPUSCULAR HGB 30.8 pg (27.0-31.0); MEAN CORPUSCULAR HGB CONC 33.6 g/dl (33.0-37.0); MEAN PLATELET VOLUME 8.8 fl (9.6-12.3); MONO # 0.3 10*3/uL (0.1-1.0); MONO % 7.9 % (3.0-9.0); NEUT # 2.1 10*3/uL (2.3-7.9); NEUT % 53.1 % (47.0-73.0); PLATELET COUNT AUTOMATED 322 10*3/uL (130-400); RED BLOOD COUNT 2.86 10*6/uL (4.10-5.10); WHITE BLOOD COUNT 3.9 10*3/uL (4.8-10.8)
[2023-04-30 15:00] LABS: ACT PARTIAL THROMBO TIME 23.9 SECONDS (20.0-32.1)
[2023-04-30 15:12] LABS: POTASSIUM 3.8 mmol/L (3.4-5.1)
== END | disposition home or self-care (01) ==
LOC: LAB 14:23
PROVIDERS: Nurse Practitioner Family; ATTEND Internal Medicine Nephrology
DX: N17.0 Acute kidney failure with tubular necrosis (principal)

== ENCOUNTER → 2023-05-07 | Day surgery (SDC) | payer OTHER ==
[2023-05-07] VITALS (8 sets, daily range): BP systolic 117–156; BP diastolic 62–84
[2023-05-07 09:32] LABS: ACT PARTIAL THROMBO TIME 23.8 SECONDS (20.0-32.1)
== END | disposition home or self-care (01) ==
LOC: SDC 02:16
PROVIDERS: ATTEND Nurse Practitioner Family
DX: D63.1 Anemia in chronic kidney disease (principal); I12.9 Hypertensive chronic kidney disease with stage 1 through stage 4 chronic kidney disease, or unspecified chronic kidney disease; N18.9 Chronic kidney disease, unspecified; F41.9 Anxiety disorder, unspecified; F32.A Depression, unspecified; K21.9 Gastro-esophageal reflux disease without esophagitis; F25.9 Schizoaffective disorder, unspecified; M19.90 Unspecified osteoarthritis, unspecified site; J44.9 Chronic obstructive pulmonary disease, unspecified; Z95.1 Presence of aortocoronary bypass graft; Z90.49 Acquired absence of other specified parts of digestive tract; Z79.01 Long term (current) use of anticoagulants; Z79.82 Long term (current) use of aspirin; Z79.899 Other long term (current) drug therapy

== ENCOUNTER → 2023-07-21 | Outpatient (CLI) | payer OTHER ==
[2023-07-21 09:51] LABS: BASO % 0.6 % (0.0-1.0); HEMATOCRIT 27.7 % (37.0-47.0); LYMPH # 1.3 10*3/uL (1.3-4.4); LYMPH % 17.8 % (27.0-41.0); MEAN CELL VOLUME 91.1 fl (81.0-99.0); MEAN CORPUSCULAR HGB 30.9 pg (27.0-31.0); MEAN CORPUSCULAR HGB CONC 33.9 g/dl (33.0-37.0); MEAN PLATELET VOLUME 8.7 fl (9.6-12.3); MONO # 0.5 10*3/uL (0.1-1.0); MONO % 7.1 % (3.0-9.0); NEUT # 5.4 10*3/uL (2.3-7.9); NEUT % 74.1 % (47.0-73.0); PLATELET COUNT AUTOMATED 321 10*3/uL (130-400); RED BLOOD COUNT 3.04 10*6/uL (4.10-5.10); RED CELL DISTRI WIDTH 11.9 % (0-14.5); WHITE BLOOD COUNT 7.2 10*3/uL (4.8-10.8)
[2023-07-21 10:13] LABS: BILIRUBIN Negative (Negative); BLOOD 2+ (Negative); CLARITY Clear (Clear); COLOR Yellow (Yellow); GLUCOSE Negative (Negative); KETONE Negative (Negative); LEUKO ESTERASE Trace (Negative); NITRITE Negative (Negative); PH 5.5 (4.5-8.0); SPECIFIC GRAVITY <= 1.005 (1.001-1.030); UROBILINOGEN 0.2 E.U./dl (0.0-1.0)
[2023-07-21 10:19] LABS: POTASSIUM 3.6 mmol/L (3.4-5.1); TOTAL PROTEIN 7.2 gm/dL (6.0-8.0)
[2023-07-21 10:34] LABS: BACTERIA 1+
[2023-07-22 19:06] LABS: ANTI MPO ANTIBODIES 3.3 units (0.0-0.9); ANTI PR3 ANTIBODIES <0.2 units (0.0-0.9)
[2023-07-23 08:09] LABS: ATYPICAL pANCA <1:20 titer (Neg:<1:20); CYTOPLASMIC (C-ANCA) <1:20 titer (Neg:<1:20); PERINUCLEAR (P-ANCA) >1:640 titer (Neg:<1:20)
== END | disposition home or self-care (01) ==
LOC: LAB 09:31
PROVIDERS: ATTEND Nurse Practitioner Family
DX: M31.7 Microscopic polyangiitis (principal); D63.1 Anemia in chronic kidney disease

== ENCOUNTER 2023-09-02 11:51 | Emergency (ER) | payer OTHER ==
[2023-09-02 12:01] VITALS: BP 128/70
[2023-09-02] MEDS ORDERED: CEPHALEXIN500 M1 PO (13:44)
== END 2023-09-02 14:04 | disposition home or self-care (01) ==
LOC: ED 11:51
DX: L03.114 Cellulitis of left upper limb (principal); I10 Essential (primary) hypertension; F41.9 Anxiety disorder, unspecified; F32.A Depression, unspecified; K21.9 Gastro-esophageal reflux disease without esophagitis; E78.00 Pure hypercholesterolemia, unspecified; Z88.2 Allergy status to sulfonamides; Z88.8 Allergy status to other drugs, medicaments and biological substances; Z90.710 Acquired absence of both cervix and uterus; Z98.890 Other specified postprocedural states; Z87.891 Personal history of nicotine dependence

== ENCOUNTER → 2023-10-14 | Outpatient (CLI) | payer OTHER ==
[2023-10-14 09:20] LABS: BILIRUBIN Negative (Negative); BLOOD 2+ (Negative); CLARITY Clear (Clear); COLOR Yellow (Yellow); GLUCOSE Negative (Negative); KETONE Negative (Negative); LEUKO ESTERASE Trace (Negative); NITRITE Negative (Negative); SPECIFIC GRAVITY 1.015 (1.001-1.030); UROBILINOGEN 0.2 E.U./dl (0.0-1.0)
[2023-10-14 09:21] LABS: BASO % 0.4 % (0.0-1.0); EOS # 0.1 10*3/uL (0.0-0.4); EOS % 2.1 % (1.0-4.0); HEMATOCRIT 31.5 % (37.0-47.0); LYMPH # 1.5 10*3/uL (1.3-4.4); LYMPH % 26.4 % (27.0-41.0); MEAN CELL VOLUME 94.3 fl (81.0-99.0); MEAN CORPUSCULAR HGB 29.3 pg (27.0-31.0); MEAN CORPUSCULAR HGB CONC 31.1 g/dl (33.0-37.0); MEAN PLATELET VOLUME 8.8 fl (9.6-12.3); MONO # 0.5 10*3/uL (0.1-1.0); MONO % 9.3 % (3.0-9.0); NEUT # 3.5 10*3/uL (2.3-7.9); NEUT % 61.6 % (47.0-73.0); PLATELET COUNT AUTOMATED 357 10*3/uL (130-400); RED BLOOD COUNT 3.34 10*6/uL (4.10-5.10); RED CELL DISTRI WIDTH 12.7 % (0-14.5); WHITE BLOOD COUNT 5.7 10*3/uL (4.8-10.8)
[2023-10-14 09:28] LABS: URINE CREATININE RANDOM 89.82 mg/dL
[2023-10-14 09:46] LABS: BACTERIA 2+
[2023-10-14 09:57] LABS: POTASSIUM 4.1 mmol/L (3.4-5.1)
== END | disposition home or self-care (01) ==
LOC: LAB 08:48
PROVIDERS: ATTEND Nurse Practitioner Family
DX: M31.7 Microscopic polyangiitis (principal); D63.1 Anemia in chronic kidney disease

== ENCOUNTER → 2023-11-17 | Outpatient (CLI) | payer OTHER ==
[2023-11-17 14:57] LABS: BASO % 0.4 % (0.0-1.0); BILIRUBIN Negative (Negative); BLOOD 1+ (Negative); CLARITY Clear (Clear); COLOR Yellow (Yellow); GLUCOSE Negative (Negative); HEMATOCRIT 30.4 % (37.0-47.0); KETONE Negative (Negative); LEUKO ESTERASE Negative (Negative); LYMPH # 1.2 10*3/uL (1.3-4.4); LYMPH % 22.6 % (27.0-41.0); MEAN CELL VOLUME 94.4 fl (81.0-99.0); MEAN CORPUSCULAR HGB 29.2 pg (27.0-31.0); MEAN CORPUSCULAR HGB CONC 30.9 g/dl (33.0-37.0); MEAN PLATELET VOLUME 9.1 fl (9.6-12.3); MONO # 0.5 10*3/uL (0.1-1.0); MONO % 9.4 % (3.0-9.0); NEUT # 3.5 10*3/uL (2.3-7.9); NEUT % 67.4 % (47.0-73.0); NITRITE Negative (Negative); PH 5.5 (4.5-8.0); PLATELET COUNT AUTOMATED 341 10*3/uL (130-400); RED BLOOD COUNT 3.22 10*6/uL (4.10-5.10); RED CELL DISTRI WIDTH 12.6 % (0-14.5); SPECIFIC GRAVITY <= 1.005 (1.001-1.030); UROBILINOGEN 0.2 E.U./dl (0.0-1.0); WHITE BLOOD COUNT 5.2 10*3/uL (4.8-10.8)
[2023-11-17 15:09] LABS: MUCOUS 1+; WBC 0-2 wbc/hpf (0-5)
[2023-11-17 15:26] LABS: ALKALINE PHOSPHATASE 78 U/L (46-116); BUN 20 mg/dl (9-23); CHLORIDE 105 mmol/L (98-107); POTASSIUM 3.9 mmol/L (3.4-5.1); TOTAL PROTEIN 7.1 gm/dL (6.0-8.0)
[2023-11-17 15:27] LABS: SGPT/ALT < 7 U/L (5-49)
== END | disposition home or self-care (01) ==
LOC: LAB 14:31
PROVIDERS: ATTEND Nurse Practitioner Family
DX: M31.7 Microscopic polyangiitis (principal); D63.1 Anemia in chronic kidney disease

== ENCOUNTER → 2024-01-15 | Outpatient (CLI) | payer OTHER | END | disposition home or self-care (01) | LOC: US 00:39 | PROVIDERS: ATTEND Internal Medicine | DX: M79.89 Other specified soft tissue disorders (principal) ==

== ENCOUNTER 2024-02-04 11:30 | Inpatient (IN) | payer OTHER ==
[~2024-02-04] VITALS: Ht 165.1 cm; Wt 80.4 kg
[~2024-02-04 11:30] MED LIST changes: -DULERA 100 MCG-13 GM INH; -VITAMIN D250 MCG PO
[2024-02-04 12:42] LABS: BASO % 0.1 % (0.0-1.0); HEMATOCRIT 22.6 % (37.0-47.0); LYMPH # 0.6 10*3/uL (1.3-4.4); LYMPH % 8.7 % (27.0-41.0); MEAN CELL VOLUME 91.9 fl (81.0-99.0); MEAN CORPUSCULAR HGB 28.5 pg (27.0-31.0); MEAN PLATELET VOLUME 8.6 fl (9.6-12.3); MONO # 0.7 10*3/uL (0.1-1.0); MONO % 9.5 % (3.0-9.0); NEUT # 5.7 10*3/uL (2.3-7.9); NEUT % 81.4 % (47.0-73.0); PLATELET COUNT AUTOMATED 444 10*3/uL (130-400); RED BLOOD COUNT 2.46 10*6/uL (4.10-5.10); RED CELL DISTRI WIDTH 13.6 % (0-14.5)
[2024-02-04 13:12] LABS: ALKALINE PHOSPHATASE 79 U/L (46-116); BUN 63 mg/dl (9-23); CHLORIDE 104 mmol/L (98-107); POTASSIUM 3.6 mmol/L (3.4-5.1); SGPT/ALT 9 U/L (5-49); TOTAL PROTEIN 7.9 gm/dL (6.0-8.0)
[2024-02-04 13:55] LABS: BILIRUBIN Negative (Negative); BLOOD 2+ (Negative); CLARITY Cloudy (Clear); COLOR Yellow (Yellow); GLUCOSE 1+ (Negative); KETONE Negative (Negative); LEUKO ESTERASE 3+ (Negative); NITRITE Negative (Negative); UROBILINOGEN 0.2 E.U./dl (0.0-1.0)
[2024-02-04 14:07] LABS: BACTERIA 2+; WBC 51-100 wbc/hpf (0-5)
[2024-02-04] MEDS ORDERED: HEPARIN SODIUM 10,000 UN/10 ML VIAL IV SCH (14:40)
[2024-02-04] MEDS ORDERED: MORPHINE Sulfate 2 MG/ML SYR IV PRN (15:20)
[2024-02-04] MEDS ORDERED: BISACODYL 5 MG TAB PO PRN (15:20)
[2024-02-04] MEDS ORDERED: Acetaminophen/Hydrocodone 5 MG/325 MG TABLET PO PRN (15:20)
[2024-02-04] MEDS ORDERED: Magnesium Hydroxide 30 ML UDC PO PRN (15:20)
[2024-02-04] MEDS ORDERED: BISACODYL 10 MG SUPP R PRN (15:20)
[2024-02-04] MEDS ORDERED: Ondansetron Hydrochloride 4 MG/2 ML VIAL IV PRN (15:20)
[2024-02-04] MEDS ORDERED: TEMAZEPAM 15 MG CAP PO PRN (15:20)
[2024-02-04] MEDS ORDERED: ALBUMIN 25% 50 ML IV PRN (16:05)
[2024-02-04] MEDS ORDERED: SODIUM CHLORIDE 0.9% 1,000 ML IV SCH (16:05)
[2024-02-04] MEDS ORDERED: SODIUM CHLORIDE 23.4% 120 MEQ/30 ML VIAL IV SCH (16:05)
[2024-02-04] MEDS ORDERED: MANNITOL 12.5 GM/50 ML VIAL IV SCH (16:05)
[2024-02-04 16:15] VITALS: BP 123/75
[2024-02-04 16:52] VITALS: BP 126/72
[2024-02-04 17:07] VITALS: BP 128/59
[2024-02-04 17:52] VITALS: BP 117/76
[2024-02-04] MEDS ORDERED: Ceftriaxone Sodium 1 GM in SYRINGE INFUSION 10 ML IV SCH (18:00)
[2024-02-04 18:25] VITALS: BP 137/75
[2024-02-04 19:30] VITALS: BP 112/60
[2024-02-04] MEDS ORDERED: DULERA 100 MCG-13 GM INH (19:55)
[2024-02-04] MEDS ORDERED: VITAMIN D250 MCG PO (19:56)
[2024-02-05] VITALS: BP 105/49
[2024-02-05 00:23] LABS: BASO % 0.4 % (0.0-1.0); HEMATOCRIT 25.4 % (37.0-47.0); LYMPH # 0.5 10*3/uL (1.3-4.4); LYMPH % 7.5 % (27.0-41.0); MEAN CORPUSCULAR HGB 29.4 pg (27.0-31.0); MEAN CORPUSCULAR HGB CONC 33.5 g/dl (33.0-37.0); MEAN PLATELET VOLUME 8.9 fl (9.6-12.3); MONO # 0.7 10*3/uL (0.1-1.0); MONO % 10.2 % (3.0-9.0); NEUT # 5.7 10*3/uL (2.3-7.9); NEUT % 81.5 % (47.0-73.0); PLATELET COUNT AUTOMATED 381 10*3/uL (130-400); RED BLOOD COUNT 2.89 10*6/uL (4.10-5.10); RED CELL DISTRI WIDTH 13.4 % (0-14.5)
[2024-02-05 00:24] LABS: MEAN CELL VOLUME 87.9 fl (81.0-99.0)
[2024-02-05] MEDS ORDERED: Albuterol Sulfate 2.5 MG/3 ML VIAL NEB SCH (02:20)
[2024-02-05] MEDS ORDERED: BUDESONIDE 0.5 MG AMP NEB SCH (02:20)
[2024-02-05 06:01] LABS: FREE T4 0.83 ng/dl (0.89-1.76); POTASSIUM 3.1 mmol/L (3.4-5.1); TOTAL PROTEIN 7.9 gm/dL (6.0-8.0)
[2024-02-05 06:15] LABS: BASO % 0.5 % (0.0-1.0); HEMATOCRIT 26.4 % (37.0-47.0); LYMPH # 0.7 10*3/uL (1.3-4.4); LYMPH % 10.8 % (27.0-41.0); MEAN CELL VOLUME 89.2 fl (81.0-99.0); MEAN CORPUSCULAR HGB 28.7 pg (27.0-31.0); MEAN CORPUSCULAR HGB CONC 32.2 g/dl (33.0-37.0); MEAN PLATELET VOLUME 9.1 fl (9.6-12.3); MONO # 0.7 10*3/uL (0.1-1.0); NEUT # 5.2 10*3/uL (2.3-7.9); NEUT % 78.1 % (47.0-73.0); PLATELET COUNT AUTOMATED 423 10*3/uL (130-400); RED BLOOD COUNT 2.96 10*6/uL (4.10-5.10); RED CELL DISTRI WIDTH 13.7 % (0-14.5); WHITE BLOOD COUNT 6.6 10*3/uL (4.8-10.8)
[2024-02-05 06:38] LABS: ACT PARTIAL THROMBO TIME 31.3 SECONDS (20.0-32.1)
[2024-02-05 08:10] LABS: HBSAG Negative (Negative); HEP B CORE AB, IGM Negative (Negative); HEPATITIS C ANTIBODY Non Reactive (Non Reactive)
[2024-02-05] MEDS ORDERED: SODIUM CHLORIDE 0.9% 1,000 ML BAG IV ONE (08:15)
[2024-02-05] MEDS ORDERED: Alteplase, Recombinant 2 MG/2 ML VIAL IC ONE ×2 (08:15)
[2024-02-05] MEDS ORDERED: HEPARIN SODIUM 10,000 UN/10 ML VIAL IV ONE (08:15)
[2024-02-05] MEDS ORDERED: diphenhydrAMINE hydrochloride 25 MG CAP PO PRN (09:45)
[2024-02-05] MEDS ORDERED: [UNRECOGNIZED DRUG - OTHER] PO SCH (10:00)
[2024-02-05] MEDS ORDERED: MED. FROM HOME 1 EACH EA PO SCH (10:00)
[2024-02-05] MEDS ORDERED: FORMOTEROL INH SCH (10:00)
[2024-02-05] MEDS ORDERED: MOMETASONE INH SCH (10:00)
[2024-02-05] MEDS ORDERED: ASPIRIN, CHEWABLE 81 MG TAB PO SCH (10:00)
[2024-02-05 12:00] VITALS: BP 104/54
[2024-02-05 16:00] VITALS: BP 102/64
[2024-02-05 20:00] VITALS: BP 100/60
[2024-02-05] MEDS ORDERED: ATORVASTATIN CALCIUM 80 MG TAB PO SCH (22:00)
[2024-02-05] MEDS ORDERED: Sertraline Hydrochloride 50 MG TAB PO SCH (22:00)
[2024-02-06] VITALS: BP 100/50
[2024-02-06 06:49] LABS: BASO % 0.2 % (0.0-1.0); HEMATOCRIT 23.2 % (37.0-47.0); LYMPH # 0.5 10*3/uL (1.3-4.4); LYMPH % 5.1 % (27.0-41.0); MEAN CELL VOLUME 90.6 fl (81.0-99.0); MEAN CORPUSCULAR HGB 29.3 pg (27.0-31.0); MEAN CORPUSCULAR HGB CONC 32.3 g/dl (33.0-37.0); MONO # 0.8 10*3/uL (0.1-1.0); MONO % 8.4 % (3.0-9.0); NEUT # 8.3 10*3/uL (2.3-7.9); NEUT % 85.8 % (47.0-73.0); PLATELET COUNT AUTOMATED 316 10*3/uL (130-400); RED BLOOD COUNT 2.56 10*6/uL (4.10-5.10); RED CELL DISTRI WIDTH 14.3 % (0-14.5); WHITE BLOOD COUNT 9.7 10*3/uL (4.8-10.8)
[2024-02-06 07:13] LABS: POTASSIUM 3.6 mmol/L (3.4-5.1)
[2024-02-06] MEDS ORDERED: Albuterol Sulfate 2.5 MG/3 ML VIAL NEB PRN (08:35)
[2024-02-06] MEDS ORDERED: HEPARIN SODIUM 10,000 UN/10 ML VIAL IV ONE (08:59)
[2024-02-06] MEDS ORDERED: SODIUM CHLORIDE 0.9% 1,000 ML BAG IV ONE (08:59)
[2024-02-06 10:12] VITALS: BP 117/44
[2024-02-06 12:00] VITALS: BP 118/42
[2024-02-06] MEDS ORDERED: hydrOXYzine pamoate 25 MG CAP PO PRN (13:00)
[2024-02-06] MEDS ORDERED: HEPARIN SODIUM 5,000 UNIT/ML VIAL SC SCH (14:00)
[2024-02-06 16:00] VITALS: BP 95/45
[2024-02-06 20:00] VITALS: BP 114/56
[2024-02-07] VITALS (13 sets, daily range): BP systolic 94–115; BP diastolic 48–68
[2024-02-07 05:43] LABS: BILIRUBIN Negative (Negative); BLOOD 2+ (Negative); CLARITY Clear (Clear); COLOR Yellow (Yellow); GLUCOSE Trace (Negative); KETONE Negative (Negative); LEUKO ESTERASE 3+ (Negative); NITRITE Negative (Negative); SPECIFIC GRAVITY <= 1.005 (1.001-1.030); UROBILINOGEN 0.2 E.U./dl (0.0-1.0)
[2024-02-07 05:49] LABS: EPITHELIAL CELLS TNTC; WBC 41-50 wbc/hpf (0-5)
[2024-02-07 05:50] LABS: BACTERIA 1+
[2024-02-07 07:14] LABS: BASO % 0.3 % (0.0-1.0); HEMATOCRIT 22.3 % (37.0-47.0); LYMPH # 0.9 10*3/uL (1.3-4.4); LYMPH % 13.9 % (27.0-41.0); MEAN CELL VOLUME 91.4 fl (81.0-99.0); MEAN CORPUSCULAR HGB 28.7 pg (27.0-31.0); MEAN CORPUSCULAR HGB CONC 31.4 g/dl (33.0-37.0); MEAN PLATELET VOLUME 8.9 fl (9.6-12.3); MONO # 0.6 10*3/uL (0.1-1.0); MONO % 9.2 % (3.0-9.0); NEUT # 5.1 10*3/uL (2.3-7.9); NEUT % 76.2 % (47.0-73.0); PLATELET COUNT AUTOMATED 289 10*3/uL (130-400); RED BLOOD COUNT 2.44 10*6/uL (4.10-5.10); WHITE BLOOD COUNT 6.7 10*3/uL (4.8-10.8)
[2024-02-07 07:39] LABS: POTASSIUM 3.4 mmol/L (3.4-5.1); TOTAL PROTEIN 6.7 gm/dL (6.0-8.0)
[2024-02-07] MEDS ORDERED: NA FERRIC GLUC CMPL/SUCROSE 62.5 MG/5 ML VIAL IV SCH (10:00)
[2024-02-07] MEDS ORDERED: SODIUM CHLORIDE 0.9% 500 ML IV ONE (11:00)
[2024-02-07] MEDS ORDERED: ACETAMINOPHEN 325 MG TAB PO ONE (11:25)
[2024-02-08] VITALS: BP 109/64
[2024-02-08 05:20] LABS: ALKALINE PHOSPHATASE 132 U/L (46-116); BUN 30 mg/dl (9-23); CHLORIDE 92 mmol/L (98-107); POTASSIUM 3.4 mmol/L (3.4-5.1); SGPT/ALT 24 U/L (5-49); TOTAL PROTEIN 6.8 gm/dL (6.0-8.0)
[2024-02-08 06:32] LABS: BASO % 0.3 % (0.0-1.0); HEMATOCRIT 25.2 % (37.0-47.0); LYMPH # 0.8 10*3/uL (1.3-4.4); LYMPH % 10.9 % (27.0-41.0); MEAN CELL VOLUME 92.6 fl (81.0-99.0); MEAN CORPUSCULAR HGB 29.8 pg (27.0-31.0); MEAN CORPUSCULAR HGB CONC 32.1 g/dl (33.0-37.0); MEAN PLATELET VOLUME 9.3 fl (9.6-12.3); MONO # 0.6 10*3/uL (0.1-1.0); MONO % 8.4 % (3.0-9.0); NEUT # 5.6 10*3/uL (2.3-7.9); NEUT % 79.8 % (47.0-73.0); PLATELET COUNT AUTOMATED 334 10*3/uL (130-400); RED BLOOD COUNT 2.72 10*6/uL (4.10-5.10); RED CELL DISTRI WIDTH 13.9 % (0-14.5); WHITE BLOOD COUNT 7.1 10*3/uL (4.8-10.8)
[2024-02-08] MEDS ORDERED: SODIUM CHLORIDE 0.9% 1,000 ML BAG IV ONE ×2 (07:52→16:55)
[2024-02-08] MEDS ORDERED: HEPARIN SODIUM 10,000 UN/10 ML VIAL IV ONE ×2 (07:52→16:55)
[2024-02-08 08:00] VITALS: BP 103/68
[2024-02-08 12:00] VITALS: BP 103/45
[2024-02-08 16:00] VITALS: BP 110/62
[2024-02-08 20:00] VITALS: BP 115/67; BP 83/46
[2024-02-09] VITALS (13 sets, daily range): BP systolic 87–121; BP diastolic 46–66
[2024-02-09 05:57] LABS: BASO % 0.3 % (0.0-1.0); LYMPH # 0.7 10*3/uL (1.3-4.4); LYMPH % 12.2 % (27.0-41.0); MEAN CELL VOLUME 94.9 fl (81.0-99.0); MEAN CORPUSCULAR HGB 29.2 pg (27.0-31.0); MEAN CORPUSCULAR HGB CONC 30.8 g/dl (33.0-37.0); MEAN PLATELET VOLUME 9.1 fl (9.6-12.3); MONO # 0.6 10*3/uL (0.1-1.0); MONO % 10.2 % (3.0-9.0); NEUT # 4.6 10*3/uL (2.3-7.9); NEUT % 76.8 % (47.0-73.0); PLATELET COUNT AUTOMATED 339 10*3/uL (130-400); RED BLOOD COUNT 2.74 10*6/uL (4.10-5.10); RED CELL DISTRI WIDTH 13.7 % (0-14.5)
[2024-02-09] MEDS ORDERED: Lidocaine Hydrochloride 5 ML AMP ONE ×2 (09:25→09:29)
[2024-02-09] MEDS ORDERED: HEPARIN SODIUM 300 UNITS/3 ML SYR IV ONE (09:25)
[2024-02-09] MEDS ORDERED: SODIUM CHLORIDE 0.9% 50 ML IV ONE (09:29)
[2024-02-09] MEDS ORDERED: ceFAZolin sodium/sodium chlor 10 ML IV SCH (09:55)
[2024-02-09] MEDS ORDERED: ceFAZolin sodium/sodium chlor 10 ML IV ONE (10:02)
[2024-02-09] MEDS ORDERED: HYDROXYZINE HCL25 MG PO (11:39)
== END 2024-02-09 12:37 | disposition home or self-care (01) | DRG 469 ==
LOC: ED 11:30 → EDHOLD 14:05 → 5E 14:05 → EDHOLD 14:07 → 5E 16:27 → ICCU 02-08 17:53
PROVIDERS: Internal Medicine; Internal Medicine Nephrology; Student in an Organized Health Care Education/Training Program; ADMIT Internal Medicine; ATTEND Internal Medicine
PROC: 30233N1 Transfusion of Nonautologous Red Blood Cells into Peripheral Vein, Percutaneous Approach (ICD-10-PCS; principal; 2024-02-04)
PROC: 02HV33Z Insertion of Infusion Device into Superior Vena Cava, Percutaneous Approach (ICD-10-PCS; 2024-02-04)
PROC: B548ZZA Ultrasonography of Superior Vena Cava, Guidance (ICD-10-PCS; 2024-02-04)
PROC: 5A1D70Z Performance of Urinary Filtration, Intermittent, Less than 6 Hours Per Day (ICD-10-PCS; 2024-02-04)
PROC: 5A1D70Z Performance of Urinary Filtration, Intermittent, Less than 6 Hours Per Day (ICD-10-PCS; 2024-02-05)
PROC: 5A1D70Z Performance of Urinary Filtration, Intermittent, Less than 6 Hours Per Day (ICD-10-PCS; 2024-02-08)
PROC: 02PY33Z Removal of Infusion Device from Great Vessel, Percutaneous Approach (ICD-10-PCS; 2024-02-09)
PROC: 02HV33Z Insertion of Infusion Device into Superior Vena Cava, Percutaneous Approach (ICD-10-PCS; 2024-02-09)
PROC: 0JH63XZ Insertion of Tunneled Vascular Access Device into Chest Subcutaneous Tissue and Fascia, Percutaneous Approach (ICD-10-PCS; 2024-02-09)
PROC: B5181ZA Fluoroscopy of Superior Vena Cava using Low Osmolar Contrast, Guidance (ICD-10-PCS; 2024-02-09)
DX: N17.0 Acute kidney failure with tubular necrosis (principal); E43 Unspecified severe protein-calorie malnutrition; E83.42 Hypomagnesemia; E87.1 Hypo-osmolality and hyponatremia; I12.0 Hypertensive chronic kidney disease with stage 5 chronic kidney disease or end stage renal disease; F25.9 Schizoaffective disorder, unspecified; D64.9 Anemia, unspecified; J44.9 Chronic obstructive pulmonary disease, unspecified; Z66 Do not resuscitate; L29.8 Other pruritus; K21.9 Gastro-esophageal reflux disease without esophagitis; N18.5 Chronic kidney disease, stage 5; R73.9 Hyperglycemia, unspecified; D75.839 Thrombocytosis, unspecified; F32.A Depression, unspecified; F41.1 Generalized anxiety disorder; L30.8 Other specified dermatitis; N39.0 Urinary tract infection, site not specified; E78.5 Hyperlipidemia, unspecified; Z68.29 Body mass index [BMI] 29.0-29.9, adult; Z51.5 Encounter for palliative care; Z90.710 Acquired absence of both cervix and uterus; Z90.722 Acquired absence of ovaries, bilateral; Z87.891 Personal history of nicotine dependence; Z82.49 Family history of ischemic heart disease and other diseases of the circulatory system; Z83.3 Family history of diabetes mellitus; Z88.2 Allergy status to sulfonamides; Z88.8 Allergy status to other drugs, medicaments and biological substances; Z79.2 Long term (current) use of antibiotics; Z79.899 Other long term (current) drug therapy

== ENCOUNTER → 2024-02-04 | Outpatient (CLI) | payer OTHER ==
[~2024-02-04] MED LIST changes: +DULERA 100 MCG-13 GM INH; +VITAMIN D250 MCG PO
[2024-02-04 08:58] LABS: BASO % 0.3 % (0.0-1.0); HEMATOCRIT 23.7 % (37.0-47.0); LYMPH # 0.9 10*3/uL (1.3-4.4); MEAN CELL VOLUME 91.2 fl (81.0-99.0); MEAN CORPUSCULAR HGB 29.2 pg (27.0-31.0); MEAN CORPUSCULAR HGB CONC 32.1 g/dl (33.0-37.0); MEAN PLATELET VOLUME 8.9 fl (9.6-12.3); MONO # 0.5 10*3/uL (0.1-1.0); MONO % 8.1 % (3.0-9.0); NEUT % 77.3 % (47.0-73.0); PLATELET COUNT AUTOMATED 488 10*3/uL (130-400); RED CELL DISTRI WIDTH 13.9 % (0-14.5); WHITE BLOOD COUNT 6.5 10*3/uL (4.8-10.8)
[2024-02-04 09:30] LABS: POTASSIUM 3.3 mmol/L (3.4-5.1)
[2024-02-04 10:00] LABS: BILIRUBIN Negative (Negative); BLOOD 2+ (Negative); CLARITY Cloudy (Clear); COLOR Yellow (Yellow); GLUCOSE 1+ (Negative); KETONE Negative (Negative); LEUKO ESTERASE 3+ (Negative); NITRITE Negative (Negative); PH 5.5 (4.5-8.0); UROBILINOGEN 0.2 E.U./dl (0.0-1.0)
[2024-02-04 10:06] LABS: URINE CREATININE RANDOM 65.76 mg/dL
[2024-02-04 10:13] LABS: VITAMIN D, 25-HYDROXY 47.2 ng/mL (30-100)
[2024-02-04 10:19] LABS: BACTERIA 1+; EPITHELIAL CELLS 16-20; MUCOUS TRACE; RBC 16-20 rbc/hpf (0-2); WBC 41-50 wbc/hpf (0-5)
== END | disposition home or self-care (01) ==
LOC: LAB 08:32
PROVIDERS: ATTEND Nurse Practitioner Family
DX: N25.81 Secondary hyperparathyroidism of renal origin (principal); E55.9 Vitamin D deficiency, unspecified; M31.7 Microscopic polyangiitis; D63.1 Anemia in chronic kidney disease

== ENCOUNTER → 2024-03-18 | Outpatient (CLI) | payer OTHER ==
[~2024-03-18] MED LIST changes: +DULERA 100 MCG-13 GM INH; +HYDROXYZINE HCL25 MG PO; +VITAMIN D250 MCG PO
[2024-03-18 15:14] LABS: BASO % 0.3 % (0.0-1.0); HEMATOCRIT 27.8 % (37.0-47.0); LYMPH # 0.7 10*3/uL (1.3-4.4); LYMPH % 8.6 % (27.0-41.0); MEAN CELL VOLUME 99.3 fl (81.0-99.0); MEAN CORPUSCULAR HGB 30.7 pg (27.0-31.0); MEAN CORPUSCULAR HGB CONC 30.9 g/dl (33.0-37.0); MEAN PLATELET VOLUME 8.9 fl (9.6-12.3); MONO # 0.6 10*3/uL (0.1-1.0); NEUT # 6.6 10*3/uL (2.3-7.9); NEUT % 83.5 % (47.0-73.0); PLATELET COUNT AUTOMATED 287 10*3/uL (130-400); RED CELL DISTRI WIDTH 18.2 % (0-14.5); WHITE BLOOD COUNT 7.9 10*3/uL (4.8-10.8)
[2024-03-18 15:34] LABS: POTASSIUM 3.4 mmol/L (3.4-5.1)
== END | disposition home or self-care (01) ==
LOC: LAB 14:39
PROVIDERS: ATTEND Internal Medicine
DX: A49.02 Methicillin resistant Staphylococcus aureus infection, unspecified site (principal)

== ENCOUNTER → 2024-04-01 | Outpatient (CLI) | payer OTHER ==
[2024-04-01 14:45] LABS: BASO # 0.1 10*3/uL (0.0-0.1); HEMATOCRIT 26.1 % (37.0-47.0); LYMPH # 1.7 10*3/uL (1.3-4.4); LYMPH % 18.9 % (27.0-41.0); MEAN CELL VOLUME 102.8 fl (81.0-99.0); MEAN CORPUSCULAR HGB 31.9 pg (27.0-31.0); MEAN PLATELET VOLUME 8.6 fl (9.6-12.3); MONO # 0.5 10*3/uL (0.1-1.0); MONO % 5.8 % (3.0-9.0); NEUT # 6.5 10*3/uL (2.3-7.9); NEUT % 73.4 % (47.0-73.0); PLATELET COUNT AUTOMATED 427 10*3/uL (130-400); RED BLOOD COUNT 2.54 10*6/uL (4.10-5.10); RED CELL DISTRI WIDTH 17.9 % (0-14.5); WHITE BLOOD COUNT 8.9 10*3/uL (4.8-10.8)
[2024-04-01 15:05] LABS: CHLORIDE 102 mmol/L (98-107); CPK 51 U/L (34-171); POTASSIUM 3.3 mmol/L (3.4-5.1)
[2024-04-01 15:07] LABS: BUN < 5 mg/dl (9-23)
== END | disposition home or self-care (01) ==
LOC: LAB 14:30
PROVIDERS: ATTEND Internal Medicine Nephrology
DX: B95.62 Methicillin resistant Staphylococcus aureus infection as the cause of diseases classified elsewhere (principal)

== ENCOUNTER 2024-04-14 21:49 | Emergency (ER) | payer OTHER ==
[~2024-04-14] VITALS: Ht 167.6 cm; Wt 64.4 kg
[2024-04-14 22:04] VITALS: BP 123/63
[2024-04-14] MEDS ORDERED: SODIUM CHLORIDE 0.9% 1,000 ML IV ONE (22:20)
[2024-04-14 22:49] LABS: BASO # 0.1 10*3/uL (0.0-0.1); BASO % 1.3 % (0.0-1.0); HEMATOCRIT 27.8 % (37.0-47.0); LYMPH # 1.7 10*3/uL (1.3-4.4); LYMPH % 25.8 % (27.0-41.0); MEAN CELL VOLUME 104.5 fl (81.0-99.0); MEAN CORPUSCULAR HGB 32.3 pg (27.0-31.0); MEAN CORPUSCULAR HGB CONC 30.9 g/dl (33.0-37.0); MONO # 0.6 10*3/uL (0.1-1.0); MONO % 8.7 % (3.0-9.0); NEUT # 4.3 10*3/uL (2.3-7.9); NEUT % 63.6 % (47.0-73.0); PLATELET COUNT AUTOMATED 347 10*3/uL (130-400); RED BLOOD COUNT 2.66 10*6/uL (4.10-5.10); RED CELL DISTRI WIDTH 17.4 % (0-14.5); WHITE BLOOD COUNT 6.8 10*3/uL (4.8-10.8)
[2024-04-14 22:53] LABS: BILIRUBIN Negative (Negative); BLOOD Negative (Negative); CLARITY Clear (Clear); COLOR Yellow (Yellow); GLUCOSE Trace (Negative); KETONE Negative (Negative); LEUKO ESTERASE Trace (Negative); NITRITE Negative (Negative); PH 7.5 (4.5-8.0); SPECIFIC GRAVITY <= 1.005 (1.001-1.030); UROBILINOGEN 0.2 E.U./dl (0.0-1.0)
[2024-04-14 23:02] LABS: BACTERIA 1+; MUCOUS 1+; RBC 0-2 rbc/hpf (0-2)
[2024-04-14 23:10] LABS: ALKALINE PHOSPHATASE 78 U/L (46-116); BUN 16 mg/dl (9-23); CHLORIDE 103 mmol/L (98-107); LIPASE 81 U/L (12-53); POTASSIUM 3.8 mmol/L (3.4-5.1); SGPT/ALT 9 U/L (5-49); TOTAL PROTEIN 7.4 gm/dL (6.0-8.0)
[2024-04-15] MEDS ORDERED: ACETAMINOPHEN 325 MG TAB PO ONE (00:10)
== END 2024-04-15 00:10 | disposition home or self-care (01) ==
LOC: ED 21:49
PROVIDERS: Internal Medicine
DX: N17.9 Acute kidney failure, unspecified (principal); I10 Essential (primary) hypertension; F41.9 Anxiety disorder, unspecified; F32.A Depression, unspecified; K21.9 Gastro-esophageal reflux disease without esophagitis; E78.00 Pure hypercholesterolemia, unspecified; Z88.2 Allergy status to sulfonamides; Z88.8 Allergy status to other drugs, medicaments and biological substances; Z90.710 Acquired absence of both cervix and uterus; Z98.890 Other specified postprocedural states; Z87.891 Personal history of nicotine dependence

== ENCOUNTER → 2024-07-21 | Outpatient (CLI) | payer OTHER ==
[~2024-07-21] MED LIST changes: +CEFEPIME HYDROCH2 GM IV; +CUBICIN RF500 MG IV; +DAPTOMYCIN1000 MG/10 IV; +TEFLARO400 MG IV; +VANC1PIG IV; +VENTOLIN 02.5 MG/3 M NEB
== END | disposition home or self-care (01) ==
LOC: WOUNDCARE 02:54
PROVIDERS: ATTEND Nurse Practitioner Family
DX: L89.323 Pressure ulcer of left buttock, stage 3 (principal); L89.313 Pressure ulcer of right buttock, stage 3; J44.9 Chronic obstructive pulmonary disease, unspecified; N18.6 End stage renal disease; K21.9 Gastro-esophageal reflux disease without esophagitis; E78.5 Hyperlipidemia, unspecified; F41.1 Generalized anxiety disorder; F25.9 Schizoaffective disorder, unspecified; Z87.891 Personal history of nicotine dependence; Z99.2 Dependence on renal dialysis; Z90.722 Acquired absence of ovaries, bilateral; Z90.710 Acquired absence of both cervix and uterus; Z79.82 Long term (current) use of aspirin; Z79.899 Other long term (current) drug therapy

== ENCOUNTER → 2024-07-28 | Outpatient (CLI) | payer OTHER | END | disposition home or self-care (01) | LOC: WOUNDCARE 00:57 | PROVIDERS: ATTEND Nurse Practitioner Family | DX: L89.323 Pressure ulcer of left buttock, stage 3 (principal); L89.313 Pressure ulcer of right buttock, stage 3; L40.9 Psoriasis, unspecified; L20.9 Atopic dermatitis, unspecified; N18.6 End stage renal disease; J44.9 Chronic obstructive pulmonary disease, unspecified; K21.9 Gastro-esophageal reflux disease without esophagitis; E78.5 Hyperlipidemia, unspecified; F20.9 Schizophrenia, unspecified; Z90.710 Acquired absence of both cervix and uterus; Z87.891 Personal history of nicotine dependence; Z99.2 Dependence on renal dialysis ==

== ENCOUNTER → 2024-08-04 | Outpatient (CLI) | payer OTHER | END | disposition home or self-care (01) | LOC: WOUNDCARE 00:34 | PROVIDERS: ATTEND Nurse Practitioner Family | DX: L89.323 Pressure ulcer of left buttock, stage 3 (principal); L89.313 Pressure ulcer of right buttock, stage 3; J44.9 Chronic obstructive pulmonary disease, unspecified; N18.6 End stage renal disease; K21.9 Gastro-esophageal reflux disease without esophagitis; E78.5 Hyperlipidemia, unspecified; L40.9 Psoriasis, unspecified; L20.9 Atopic dermatitis, unspecified; F41.1 Generalized anxiety disorder; F25.9 Schizoaffective disorder, unspecified; Z87.891 Personal history of nicotine dependence; Z99.2 Dependence on renal dialysis; Z90.722 Acquired absence of ovaries, bilateral; Z90.710 Acquired absence of both cervix and uterus; Z79.82 Long term (current) use of aspirin; Z79.899 Other long term (current) drug therapy ==

== ENCOUNTER → 2024-08-11 | Outpatient (CLI) | payer OTHER | END | disposition home or self-care (01) | LOC: WOUNDCARE 02:07 | PROVIDERS: ATTEND Nurse Practitioner Family | DX: L89.323 Pressure ulcer of left buttock, stage 3 (principal); L89.313 Pressure ulcer of right buttock, stage 3; J44.9 Chronic obstructive pulmonary disease, unspecified; N18.6 End stage renal disease; K21.9 Gastro-esophageal reflux disease without esophagitis; E78.5 Hyperlipidemia, unspecified; L40.9 Psoriasis, unspecified; L20.9 Atopic dermatitis, unspecified; F41.1 Generalized anxiety disorder; F25.9 Schizoaffective disorder, unspecified; Z87.891 Personal history of nicotine dependence; Z99.2 Dependence on renal dialysis; Z90.722 Acquired absence of ovaries, bilateral; Z90.710 Acquired absence of both cervix and uterus; Z79.82 Long term (current) use of aspirin; Z79.899 Other long term (current) drug therapy ==

== ENCOUNTER 2024-08-17 10:13 | Emergency (ER) | payer OTHER ==
[~2024-08-17] VITALS: Ht 165.1 cm; Wt 63.5 kg
[2024-08-17] MEDS ORDERED: Acetaminophen/Hydrocodone 5 MG/325 MG TABLET PO ONE ×2 (11:00→16:35)
[2024-08-17] MEDS ORDERED: AURYXIA210 MG PO (11:28)
[2024-08-17 14:00] LABS: BASO % 0.2 % (0.0-1.0); HEMATOCRIT 31.9 % (37.0-47.0); MEAN CELL VOLUME 98.5 fl (81.0-99.0); MEAN CORPUSCULAR HGB 30.2 pg (27.0-31.0); MEAN CORPUSCULAR HGB CONC 30.7 g/dl (33.0-37.0); MEAN PLATELET VOLUME 9.4 fl (9.6-12.3); MONO # 1.2 10*3/uL (0.1-1.0); MONO % 8.7 % (3.0-9.0); NEUT # 12.1 10*3/uL (2.3-7.9); NEUT % 87.9 % (47.0-73.0); PLATELET COUNT AUTOMATED 430 10*3/uL (130-400); RED BLOOD COUNT 3.24 10*6/uL (4.10-5.10); WHITE BLOOD COUNT 13.7 10*3/uL (4.8-10.8)
[2024-08-17 14:12] LABS: ACT PARTIAL THROMBO TIME 28.5 SECONDS (20.0-32.1)
[2024-08-17 14:22] LABS: ALKALINE PHOSPHATASE 134 U/L (46-116); BUN 31 mg/dl (9-23); CHLORIDE 103 mmol/L (98-107); POTASSIUM 4.3 mmol/L (3.4-5.1); TOTAL PROTEIN 7.6 gm/dL (6.0-8.0)
[2024-08-17 14:28] LABS: SGPT/ALT < 7 U/L (5-49)
[2024-08-17 17:30] VITALS: BP 130/71
== END 2024-08-17 17:40 | disposition short-term general hospital (02) ==
LOC: ED 10:13
PROVIDERS: Emergency Medicine
DX: S22.081A Stable burst fracture of T11-T12 vertebra, initial encounter for closed fracture (principal); Z20.822 Contact with and (suspected) exposure to COVID-19; M25.552 Pain in left hip; M54.50 Low back pain, unspecified; R53.1 Weakness; M25.562 Pain in left knee; Z88.2 Allergy status to sulfonamides; Z88.8 Allergy status to other drugs, medicaments and biological substances; Z79.82 Long term (current) use of aspirin; Z79.899 Other long term (current) drug therapy; Z90.710 Acquired absence of both cervix and uterus; Z96.22 Myringotomy tube(s) status; Z87.891 Personal history of nicotine dependence; R00.0 Tachycardia, unspecified; R60.0 Localized edema; W18.39XA Other fall on same level, initial encounter; Y93.89 Activity, other specified; Y92.89 Other specified places as the place of occurrence of the external cause; Y99.8 Other external cause status

== ENCOUNTER 2024-10-05 09:48 | Inpatient (IN) | payer OTHER ==
[~2024-10-05] VITALS: Ht 162.5 cm; Wt 50.9 kg
[~2024-10-05 09:48] MED LIST changes: +AURYXIA210 MG PO
[2024-10-05 09:53] VITALS: BP 111/76
[2024-10-05] MEDS ORDERED: Ondansetron Hydrochloride 4 MG/2 ML VIAL IV ONE (09:55)
[2024-10-05] MEDS ORDERED: BISACODYL 5 MG TAB PO PRN (11:45)
[2024-10-05] MEDS ORDERED: MORPHINE Sulfate 2 MG/ML SYR IV PRN (11:45)
[2024-10-05] MEDS ORDERED: ACETAMINOPHEN 325 MG TAB PO PRN (11:45)
[2024-10-05] MEDS ORDERED: Magnesium Hydroxide 30 ML UDC PO PRN (11:45)
[2024-10-05] MEDS ORDERED: ACETAMINOPHEN 650 MG SUPP R PRN (11:45)
[2024-10-05] MEDS ORDERED: Ondansetron Hydrochloride 4 MG/2 ML VIAL IV PRN (11:45)
[2024-10-05] MEDS ORDERED: BISACODYL 10 MG SUPP R PRN (11:45)
[2024-10-05] MEDS ORDERED: SODIUM CHLORIDE 0.9% 1,000 ML IV ONE ×3 (12:00→20:20)
[2024-10-05 12:30] VITALS: BP 116/71
[2024-10-05 15:54] VITALS: BP 135/67
[2024-10-05 20:00] VITALS: BP 105/45
[2024-10-05] MEDS ORDERED: HEPARIN SODIUM 5,000 UNIT/ML VIAL SC SCH (22:00)
[2024-10-06] VITALS: BP 91/62
[2024-10-06] MEDS ORDERED: Pantoprazole Sodium 40 MG TAB PO SCH (06:00)
[2024-10-06 06:56] LABS: ACT PARTIAL THROMBO TIME 22.5 SECONDS (20.0-32.1)
[2024-10-06 07:06] LABS: BASO # 0.1 10*3/uL (0.0-0.1); BASO % 1.3 % (0.0-1.0); HEMATOCRIT 26.4 % (37.0-47.0); MEAN CELL VOLUME 100.4 fl (81.0-99.0); MEAN CORPUSCULAR HGB 30.8 pg (27.0-31.0); MEAN CORPUSCULAR HGB CONC 30.7 g/dl (33.0-37.0); MEAN PLATELET VOLUME 9.4 fl (9.6-12.3); MONO # 0.4 10*3/uL (0.1-1.0); MONO % 9.5 % (3.0-9.0); NEUT # 2.6 10*3/uL (2.3-7.9); PLATELET COUNT AUTOMATED 322 10*3/uL (130-400); RED BLOOD COUNT 2.63 10*6/uL (4.10-5.10); RED CELL DISTRI WIDTH 15.7 % (0-14.5); WHITE BLOOD COUNT 4.6 10*3/uL (4.8-10.8)
[2024-10-06 08:00] VITALS: BP 106/64
[2024-10-06 08:38] LABS: FREE T4 0.73 ng/dl (0.89-1.76); POTASSIUM 3.6 mmol/L (3.4-5.1)
[2024-10-06] MEDS ORDERED: LEPTOSPERMUM HONEY 0.5 OZ TUBE T ONE (09:45)
[2024-10-06] MEDS ORDERED: Enoxaparin Sodium 30 MG/0.3 ML SYR SC SCH (10:00)
[2024-10-06 12:00] VITALS: BP 118/61
[2024-10-06] MEDS ORDERED: SODIUM CHLORIDE 0.9% 1,000 ML IV ONE (14:00)
[2024-10-06 16:00] VITALS: BP 120/62
[2024-10-06 18:00] VITALS: BP 110/64
[2024-10-06 20:00] VITALS: BP 94/53
[2024-10-06] MEDS ORDERED: AMMONIUM LACTATE 12% LOTION T SCH (22:00)
[2024-10-07] VITALS: BP 108/57
[2024-10-07 05:06] LABS: HEMOGOLBIN A1C 4.9 % (4.8-5.6)
[2024-10-07 05:26] LABS: POTASSIUM 3.1 mmol/L (3.4-5.1); TOTAL PROTEIN 5.2 gm/dL (6.0-8.0)
[2024-10-07 06:09] LABS: BASO % 0.7 % (0.0-1.0); HEMATOCRIT 26.2 % (37.0-47.0); MEAN CORPUSCULAR HGB 30.9 pg (27.0-31.0); MEAN CORPUSCULAR HGB CONC 30.9 g/dl (33.0-37.0); MEAN PLATELET VOLUME 9.5 fl (9.6-12.3); MONO # 0.5 10*3/uL (0.1-1.0); MONO % 10.4 % (3.0-9.0); NEUT # 2.7 10*3/uL (2.3-7.9); NEUT % 58.7 % (47.0-73.0); PLATELET COUNT AUTOMATED 347 10*3/uL (130-400); RED BLOOD COUNT 2.62 10*6/uL (4.10-5.10); RED CELL DISTRI WIDTH 15.5 % (0-14.5); WHITE BLOOD COUNT 4.5 10*3/uL (4.8-10.8)
[2024-10-07 08:00] VITALS: BP 113/63
[2024-10-07 12:00] VITALS: BP 108/56
[2024-10-07] MEDS ORDERED: POTASSIUM CH/0.45 NS 1,000 ML IV SCH (14:50)
[2024-10-07 16:00] VITALS: BP 115/63
[2024-10-07 20:00] VITALS: BP 123/88
[2024-10-08 00:08] VITALS: BP 123/66
[2024-10-08] MEDS ORDERED: FOAM BANDAGE 1 EACH BANDAGE T ONE ×2 (04:18→17:57)
[2024-10-08] MEDS ORDERED: LEPTOSPERMUM HONEY 0.5 OZ TUBE T ONE (04:18)
[2024-10-08 06:08] LABS: BASO # 0.1 10*3/uL (0.0-0.1); BASO % 0.9 % (0.0-1.0); HEMATOCRIT 28.7 % (37.0-47.0); MEAN CELL VOLUME 100.3 fl (81.0-99.0); MEAN CORPUSCULAR HGB 31.1 pg (27.0-31.0); MEAN PLATELET VOLUME 9.5 fl (9.6-12.3); MONO # 0.5 10*3/uL (0.1-1.0); MONO % 8.2 % (3.0-9.0); NEUT # 3.5 10*3/uL (2.3-7.9); NEUT % 61.6 % (47.0-73.0); PLATELET COUNT AUTOMATED 347 10*3/uL (130-400); RED BLOOD COUNT 2.86 10*6/uL (4.10-5.10); RED CELL DISTRI WIDTH 15.4 % (0-14.5); WHITE BLOOD COUNT 5.6 10*3/uL (4.8-10.8)
[2024-10-08 06:19] LABS: ALKALINE PHOSPHATASE 111 U/L (46-116); BUN 28 mg/dl (9-23); CHLORIDE 105 mmol/L (98-107); POTASSIUM 2.9 mmol/L (3.4-5.1); SGPT/ALT 27 U/L (5-49); TOTAL PROTEIN 5.8 gm/dL (6.0-8.0)
[2024-10-08 08:00] VITALS: BP 133/73
[2024-10-08] MEDS ORDERED: POTASSIUM CHLORIDE 20 MEQ TAB PO ONE (08:35)
[2024-10-08 12:00] VITALS: BP 130/70
[2024-10-08 16:35] VITALS: BP 98/59
[2024-10-08 20:00] VITALS: BP 113/68
[2024-10-09] VITALS: BP 114/69
[2024-10-09] MEDS ORDERED: FOAM BANDAGE 5X5 T ONE (03:36)
[2024-10-09 06:15] LABS: BASO % 0.8 % (0.0-1.0); HEMATOCRIT 25.7 % (37.0-47.0); MEAN CORPUSCULAR HGB 30.7 pg (27.0-31.0); MEAN CORPUSCULAR HGB CONC 30.7 g/dl (33.0-37.0); MEAN PLATELET VOLUME 9.4 fl (9.6-12.3); MONO # 0.4 10*3/uL (0.1-1.0); MONO % 8.3 % (3.0-9.0); NEUT # 3.4 10*3/uL (2.3-7.9); NEUT % 63.7 % (47.0-73.0); PLATELET COUNT AUTOMATED 314 10*3/uL (130-400); RED BLOOD COUNT 2.57 10*6/uL (4.10-5.10); RED CELL DISTRI WIDTH 15.3 % (0-14.5); WHITE BLOOD COUNT 5.3 10*3/uL (4.8-10.8)
[2024-10-09 06:43] LABS: POTASSIUM 4.3 mmol/L (3.4-5.1)
[2024-10-09 08:00] VITALS: BP 138/70
[2024-10-09 12:00] VITALS: BP 93/66
[2024-10-09 16:00] VITALS: BP 124/73
[2024-10-09 20:00] VITALS: BP 91/51
[2024-10-10] VITALS: BP 111/59
[2024-10-10] MEDS ORDERED: FOAM BANDAGE 1 EACH BANDAGE T ONE (05:31)
[2024-10-10 05:43] LABS: POTASSIUM 3.5 mmol/L (3.4-5.1)
[2024-10-10 06:23] LABS: BASO % 0.7 % (0.0-1.0); HEMATOCRIT 27.4 % (37.0-47.0); MEAN CELL VOLUME 99.6 fl (81.0-99.0); MEAN CORPUSCULAR HGB 30.5 pg (27.0-31.0); MEAN CORPUSCULAR HGB CONC 30.7 g/dl (33.0-37.0); MEAN PLATELET VOLUME 9.6 fl (9.6-12.3); MONO # 0.5 10*3/uL (0.1-1.0); MONO % 9.5 % (3.0-9.0); NEUT # 3.5 10*3/uL (2.3-7.9); NEUT % 63.4 % (47.0-73.0); PLATELET COUNT AUTOMATED 343 10*3/uL (130-400); RED BLOOD COUNT 2.75 10*6/uL (4.10-5.10); RED CELL DISTRI WIDTH 15.1 % (0-14.5); WHITE BLOOD COUNT 5.5 10*3/uL (4.8-10.8)
[2024-10-10 08:00] VITALS: BP 108/62
[2024-10-10 12:00] VITALS: BP 108/65
[2024-10-10] MEDS ORDERED: POTASSIUM CH/0.45 NS 1,000 ML IV SCH (13:25)
[2024-10-10 14:06] LABS: A/G RATIO 0.9 (0.7-1.7); ALBUMIN 2.6 g/dL (2.9-4.4); ALPHA-1-GLOBULIN 0.2 g/dL (0.0-0.4); BETA GLOBULIN 0.5 g/dL (0.7-1.3); GAMMA GLOBULIN 1.2 g/dL (0.4-1.8); GLOBULIN, TOTAL 2.9 g/dL (2.2-3.9)
[2024-10-10 16:00] VITALS: BP 108/65
[2024-10-10 20:00] VITALS: BP 111/70
[2024-10-11] VITALS: BP 112/71
[2024-10-11 06:13] LABS: BASO % 0.5 % (0.0-1.0); HEMATOCRIT 27.1 % (37.0-47.0); MEAN CELL VOLUME 97.5 fl (81.0-99.0); MEAN CORPUSCULAR HGB 30.6 pg (27.0-31.0); MEAN CORPUSCULAR HGB CONC 31.4 g/dl (33.0-37.0); MEAN PLATELET VOLUME 9.4 fl (9.6-12.3); MONO # 0.6 10*3/uL (0.1-1.0); MONO % 9.8 % (3.0-9.0); NEUT # 3.5 10*3/uL (2.3-7.9); NEUT % 61.9 % (47.0-73.0); PLATELET COUNT AUTOMATED 327 10*3/uL (130-400); RED BLOOD COUNT 2.78 10*6/uL (4.10-5.10); RED CELL DISTRI WIDTH 15.1 % (0-14.5); WHITE BLOOD COUNT 5.6 10*3/uL (4.8-10.8)
[2024-10-11 06:41] LABS: POTASSIUM 3.6 mmol/L (3.4-5.1); TOTAL PROTEIN 5.3 gm/dL (6.0-8.0)
[2024-10-11 08:00] VITALS: BP 103/69
[2024-10-11] MEDS ORDERED: Doxycycline Hyclate 100 MG CAP PO SCH (10:00)
[2024-10-11 12:00] VITALS: BP 124/64
[2024-10-11 14:06] LABS: ALBUMIN, URINE RANDOM 14.5 % (.); ALPHA-1-GLOBULIN, URINE 3.1 % (.); ALPHA-2-GLOBULIN, URINE 23.6 % (.); GAMMA GLOBULIN, URINE 23.2 % (.); M-SPIKE % Comment: % (Not Observed); PROTEIN,TOTAL - URINE RANDOM 21.1 mg/dL (Not Estab.)
[2024-10-11 16:00] VITALS: BP 114/67
[2024-10-11 20:00] VITALS: BP 108/33
[2024-10-12] VITALS: BP 113/88
[2024-10-12] MEDS ORDERED: FOAM BANDAGE 1 EACH BANDAGE T ONE (03:09)
[2024-10-12 06:44] LABS: BASO % 0.5 % (0.0-1.0); HEMATOCRIT 27.2 % (37.0-47.0); MEAN CELL VOLUME 98.9 fl (81.0-99.0); MEAN CORPUSCULAR HGB 31.3 pg (27.0-31.0); MEAN CORPUSCULAR HGB CONC 31.6 g/dl (33.0-37.0); MEAN PLATELET VOLUME 9.4 fl (9.6-12.3); MONO # 0.6 10*3/uL (0.1-1.0); MONO % 10.1 % (3.0-9.0); NEUT # 4.3 10*3/uL (2.3-7.9); NEUT % 70.1 % (47.0-73.0); PLATELET COUNT AUTOMATED 329 10*3/uL (130-400); RED BLOOD COUNT 2.75 10*6/uL (4.10-5.10); RED CELL DISTRI WIDTH 15.3 % (0-14.5); WHITE BLOOD COUNT 6.1 10*3/uL (4.8-10.8)
[2024-10-12 06:50] LABS: POTASSIUM 3.3 mmol/L (3.4-5.1)
[2024-10-12 08:00] VITALS: BP 100/54; BP 100/60
[2024-10-12] MEDS ORDERED: POTASSIUM CHLORIDE 20 MEQ TAB PO ONE (08:30)
[2024-10-12 12:00] VITALS: BP 106/56
[2024-10-12 16:00] VITALS: BP 112/67
== END 2024-10-12 19:47 | disposition short-term general hospital (02) | DRG 425 ==
LOC: ED 09:48 → EDHOLD 10:00 → 4E 10:00 → 5E 10-10 09:47 → 4E 10-12 19:47
PROVIDERS: Student in an Organized Health Care Education/Training Program; ADMIT Internal Medicine; ATTEND Internal Medicine
DX: E83.52 Hypercalcemia (principal); N17.0 Acute kidney failure with tubular necrosis; L89.153 Pressure ulcer of sacral region, stage 3; E43 Unspecified severe protein-calorie malnutrition; N18.6 End stage renal disease; I12.0 Hypertensive chronic kidney disease with stage 5 chronic kidney disease or end stage renal disease; T81.30XA Disruption of wound, unspecified, initial encounter; F25.9 Schizoaffective disorder, unspecified; Z99.2 Dependence on renal dialysis; J44.9 Chronic obstructive pulmonary disease, unspecified; D64.9 Anemia, unspecified; Z66 Do not resuscitate; E87.6 Hypokalemia; E87.1 Hypo-osmolality and hyponatremia; Y83.8 Other surgical procedures as the cause of abnormal reaction of the patient, or of later complication, without mention of misadventure at the time of the procedure; K21.9 Gastro-esophageal reflux disease without esophagitis; E78.5 Hyperlipidemia, unspecified; Y92.89 Other specified places as the place of occurrence of the external cause; Z88.2 Allergy status to sulfonamides; Z88.8 Allergy status to other drugs, medicaments and biological substances; Z90.710 Acquired absence of both cervix and uterus; Z87.891 Personal history of nicotine dependence; Z82.49 Family history of ischemic heart disease and other diseases of the circulatory system; Z83.3 Family history of diabetes mellitus; Z68.1 Body mass index [BMI] 19.9 or less, adult